=== PATIENT | male | born 2000 | race Caucasian/White ===

== ENCOUNTER 2021-07-18 15:10 | Inpatient (IN) ==
[2021-07-18 16:01] LABS: Appearance Urine Clear (Clear); Bilirubin Urine Negative (Negative); Blood Urine Negative (Negative); Color Urine Yellow; Glucose Urine UA Negative (Negative); Ketones Urine 1+ (Negative); Leukocyte Esterase Urine Negative (Negative); Nitrite Urine Negative (Negative); Protein Urine Negative (Negative); Specific Gravity Urine 1.012 (1.000-1.030); Urobilinogen Urine Negative (Negative)
[2021-07-18 16:21] LABS: Basophils # (auto) 0.03 K/uL (0-0.2); Basophils % (auto) 0.3 %; Eosinophils # (auto) 0.05 K/uL (0-0.5); Eosinophils % (auto) 0.5 %; Hematocrit (blood only) 48.4 % (42-52); Hemoglobin 16.6 g/dL (14.0-18.0); Immature Granulocytes # (auto) 0.03 K/uL (0.00-0.02); Immature Granulocytes % (auto) 0.3 %; Lymphocytes # (auto) 1.93 K/uL (1.2-3.4); Lymphocytes % (auto) 20.4 %; Mean Corpuscular Hemoglobin 27.7 pg (25-34); Mean Corpuscular Hgb Conc 34.3 g/dL (32-36); Mean Corpuscular Volume 80.8 fL (80-100); Mean Platelet Volume 9.9 fL (7.4-10.4); Monocytes # (auto) 0.67 K/uL (0.11-0.59); Monocytes % (auto) 7.1 %; Neutrophils # (auto) 6.74 K/uL (1.4-6.5); Neutrophils % (auto) 71.4 %; Platelet Count 206 K/uL (130-400); RDW Coefficient of Variation 13.6 % (11.5-14.5); RDW Standard Deviation 40.3 fL (36.4-46.3); Red Blood Count 5.99 M/uL (4.7-6.1); White Blood Count 9.45 K/uL (4.8-10.8)
[2021-07-18 16:31] LABS: Amphetamines+Metham, Urine Neg (Neg); Barbiturates, Urine Neg (Neg); Benzodiazepine, Urine Neg (Neg); Cocaine, Urine Neg (Neg); MDMA (Ecstacy), Urine Neg (Neg); Methadone, Urine Neg (Neg); Opiate, Urine Neg (Neg); Phencyclidine, Urine Neg (Neg)
[2021-07-18 16:41] LABS: Albumin Level 4.5 gm/dl (3.4-5.0); BUN Creatinine Ratio 10.5 (10-20); Calcium 9.6 mg/dl (8.5-10.1); Creatinine Clr Calc Pharmacy 99.6 ml/min; Est GFR (African American) 146.8 ml/min; Est GFR (Non-African American) 126.7 ml/min; Potassium 3.9 mmol/L (3.5-5.1)
[2021-07-18 16:50] LABS: Acetaminophen < 2 ug/ml (10-30); Salicylate < 1.7 mg/dl (2.8-20)
[2021-07-18 16:52] LABS: Albumin Globulin Ratio 1.3 (0.9-2); Bilirubin,Total 1.1 mg/dl (0.2-1); Globulin 3.4 gm/dl (2.5-4.0); Thyroid Stimulating Hormone 1.25 uIu/ml (0.300-4.500); Total Protein 7.9 gm/dl (6.4-8.2)
--- NOTE | 2021-07-19 00:35 | Emergency Department Note ---
Impression & Plan Suicidal ideation ED Provider Note CHIEF COMPLAINT: Suicidal ideation HISTORY OF PRESENT ILLNESS: This 21-year-old male patient presents to the emergency department with complaints of suicidal ideation. The patient states he first developed suicidal thoughts in December of this year when his long-term girlfriend broke up with him. Patient apparently had a very difficult summer but was able to distract himself. He states he would periodically have thoughts of driving his car off the road or overdosing on medications in an effort to kill himself. He states they were "hypothetical" and never came to fruition. He denies ever having a suicide attempt. Patient states he did speak with a counselor once who gave him some coping strategies after this break-up. He came back to school this fall and began dating somebody else. He states he felt very excited about this relationship but had a fight with this girl last night. He states he is very clingy in his current relationship and is always fearful that she will leave him. Patient's girlfriend stated that they needed to break up until he could deal with some of his issues. Apparently patient did not handle this well and states he "lost it." He began having active suicidal thoughts but did not have any attempts. According to the patient he told his mother that if he could not be "happy the way he was, it is not worth it." His mother is the one that directed him to the emergency department. Pt admits to ETOH occasional ly but denies substance use otherwise REVIEW OF SYSTEMS: A review of systems was performed with positives and pertinent negatives listed in the history of present illness. 10 systems were reviewed and are otherwise negative. ALLERGIES: see below MEDICATIONS: see below PMH: see below SOCIAL HISTORY: see below DDx: Mood disorder, infection, hypoglycemia, electrolyte abnormalities, cardiac sources, intracerebral event, toxicologic, trauma, neurologic, as well as other pathologies. PHYSICAL EXAM: Vital signs reviewed. General: Well-appearing 21 yo male, in no significant distress. HEENT: No scleral icterus, PERRLA, neck supple. Atraumatic. Cardiovascular: Regular rate and rhythm, no extra sounds. Pulmonary: Clear to auscultation bilaterally, normal work of breathing. Abdomen: Soft, nontender, nondistended, positive bowel sounds. Musculoskeletal: Atraumatic, no peripheral edema. Neurologic: Patient awake alert and oriented x 3, speech is clear Psych: Positive SI with plan, negative HI Skin: Warm, dry, no rash EMERGENCY DEPARTMENT COURSE/MDM: This patient was evaluated and appeared to be in no significant distress. Patient was medically cleared and referred to the psychiatric special education case manager for mental health assessment. It was felt that the patient warrants inpatient mental health care. Pt was signed out at the change of shift to Dr. Luis pending final disposition. DISPOSITION: Bed search for mental health admission Past Med/Surg History Medical History (Updated 07/22/21 @ 20:18 by Sera Ricci MD) Suicidal ideation Social History Smoking Status: Never smoker Preferred Language: Malawian Communication Ability: Effective Sheriff Officer Required: No Beliefs That Will Affect Care: None Feels Safe at Home: Yes Assistive Devices: Glasses Allergies Allergies Allergy/AdvReac Type Severity Reaction Status Date / Time No Known Allergies Allergy Unverified 07/19/21 14:08 Home Meds Home Medications Medication Instructions Recorded Confirmed Allergy 07/18/21 Results & Data (ED) Vital Signs Vital Signs - 24 hr 07/18/21 15:23 07/18/21 19:20 Temperature 37.2 C 37.2 C Temperature Source Temporal Artery Scan Oral Pulse Rate 95 H Pulse Rate [Right Finger] 83 Respiratory Rate 17 20 Respiratory Effort / Characteristics Non-Labored Respiratory Depth Normal Blood Pressure 147/86 H Blood Pressure [Right Arm] 139/73 Blood Pressure Mean 106 Blood Pressure Mean [Right Arm] 95 Blood Pressure Position Sitting Blood Pressure Position [Right Arm] Lying Pulse Oximetry 99 99 Oxygen Delivery Method Room Air Sepsis Recent Fever Within 48 Hours No Sepsis New/Unexplained Change in Mental Status N/A Sepsis Action Taken by Nursing No Action Required Laboratory Data Attestation: I reviewed the patient's lab results. Result diagrams: 07/18/21 16:11 07/18/21 16:11 Lab Results 07/18/21 07/18/21 07/18/21 Range/Units 15:45 15:45 16:11 WBC 9.45 (4.8-10.8) K/uL RBC 5.99 (4.7-6.1) M/uL Hgb 16.6 (14.0-18.0) g/dL Hct 48.4 (42-52) % MCV 80.8 (80-100) fL MCH 27.7 (25-34) pg MCHC 34.3 (32-36) g/dL RDW Std Deviation 40.3 (36.4-46.3) fL RDW Coeff of Jonathan 13.6 (11.5-14.5) % Plt Count 206 (130-400) K/uL MPV 9.9 (7.4-10.4) fL Immature Gran % (Auto) 0.3 % Neut % (Auto) 71.4 % Lymph % (Auto) 20.4 % Pike % (Auto) 7.1 % Eos % (Auto) 0.5 % Baso % (Auto) 0.3 % Neut # (Auto) 6.74 H (1.4-6.5) K/uL Lymph # (Auto) 1.93 (1.2-3.4) K/uL Pike # (Auto) 0.67 H (0.11-0.59) K/uL Eos # (Auto) 0.05 (0-0.5) K/uL Baso # (Auto) 0.03 (0-0.2) K/uL Immature Gran # (Auto) 0.03 H (0.00-0.02) K/uL Sodium (136-145) mmol/L Potassium (3.5-5.1) mmol/L Chloride (98-107) mmol/L Carbon Dioxide (21-32) mmol/L Anion Gap (3-11) BUN (7-18) mg/dl Creatinine (0.6-1.4) mg/dl Est Cr Clr Drug Dosing ml/min Est GFR ( Amer) ml/min Est GFR (Non-Af Amer) ml/min BUN/Creatinine Ratio (10-20) Glucose (70-99) mg/dl Calcium (8.5-10.1) mg/dl Total Bilirubin (0.2-1) mg/dl AST (15-37) U/L ALT (12-78) U/L Alkaline Phosphatase (45-117) U/L Total Protein (6.4-8.2) gm/dl Albumin (3.4-5.0) gm/dl Globulin (2.5-4.0) gm/dl Albumin/Globulin Ratio (0.9-2) TSH (0.300-4.500) uIu/ml Urine Color Yellow Urine Appearance Clear (Clear) Urine pH 8.0 H (4.5-7.5) Ur Specific [place] 1.012 (1.000-1.030) Urine Protein Negative (Negative) Urine Glucose (UA) Negative (Negative) Urine Ketones 1+ H (Negative) Urine Blood Negative (Negative) Urine Nitrite Negative (Negative) Urine Bilirubin Negative (Negative) Urine Urobilinogen Negative (Negative) Ur Leukocyte Esterase Negative (Negative) Salicylates (2.8-20) mg/dl Urine Opiates Screen Neg (Neg) Ur Methadone, Qual Neg (Neg) Acetaminophen (10-30) ug/ml Urine Barbiturates Neg (Neg) Ur Phencyclidine (PCP) Neg (Neg) U Amphetamin/Meth Scrn Neg (Neg) MDMA (Ecstasy) Screen Neg (Neg) U Benzodiazepines Scrn Neg (Neg) Ur Cocaine Metabolite Neg (Neg) U Marijuana (THC) Screen Neg (Neg) Ethyl Alcohol mg/dL (0-3) mg/dl COVID-19 Eval Order SARS-CoV-2 (PCR) (Negative) 07/18/21 07/18/21 07/18/21 Range/Units 16:11 16:11 16:11 WBC (4.8-10.8) K/uL RBC (4.7-6.1) M/uL Hgb (14.0-18.0) g/dL Hct (42-52) % MCV (80-100) fL MCH (25-34) pg MCHC (32-36) g/dL RDW Std Deviation (36.4-46.3) fL RDW Coeff of Jonathan (11.5-14.5) % Plt Count (130-400) K/uL MPV (7.4-10.4) fL Immature Gran % (Auto) % Neut % (Auto) % Lymph % (Auto) % Pike % (Auto) % Eos % (Auto) % Baso % (Auto) % Neut # (Auto) (1.4-6.5) K/uL Lymph # (Auto) (1.2-3.4) K/uL Pike # (Auto) (0.11-0.59) K/uL Eos # (Auto) (0-0.5) K/uL Baso # (Auto) (0-0.2) K/uL Immature Gran # (Auto) (0.00-0.02) K/uL Sodium 139 (136-145) mmol/L Potassium 3.9 (3.5-5.1) mmol/L Chloride 105 (98-107) mmol/L Carbon Dioxide 28 (21-32) mmol/L Anion Gap 6.0 (3-11) BUN 9 (7-18) mg/dl Creatinine 0.83 (0.6-1.4) mg/dl Est Cr Clr Drug Dosing 99.6 ml/min Est GFR ( Amer) 146.8 ml/min Est GFR (Non-Af Amer) 126.7 ml/min BUN/Creatinine Ratio 10.5 (10-20) Glucose 100 H (70-99) mg/dl Calcium 9.6 (8.5-10.1) mg/dl Total Bilirubin 1.1 H (0.2-1) mg/dl AST 15 (15-37) U/L ALT 25 (12-78) U/L Alkaline Phosphatase 102 (45-117) U/L Total Protein 7.9 (6.4-8.2) gm/dl Albumin 4.5 (3.4-5.0) gm/dl Globulin 3.4 (2.5-4.0) gm/dl Albumin/Globulin Ratio 1.3 (0.9-2) TSH 1.250 (0.300-4.500) uIu/ml Urine Color Urine Appearance (Clear) Urine pH (4.5-7.5) Ur Specific [place] (1.000-1.030) Urine Protein (Negative) Urine Glucose (UA) (Negative) Urine Ketones (Negative) Urine Blood (Negative) Urine Nitrite (Negative) Urine Bilirubin (Negative) Urine Urobilinogen (Negative) Ur Leukocyte Esterase (Negative) Salicylates < 1.7 L (2.8-20) mg/dl Urine Opiates Screen (Neg) Ur Methadone, Qual (Neg) Acetaminophen < 2 L (10-30) ug/ml Urine Barbiturates (Neg) Ur Phencyclidine (PCP) (Neg) U Amphetamin/Meth Scrn (Neg) MDMA (Ecstasy) Screen (Neg) U Benzodiazepines Scrn (Neg) Ur Cocaine Metabolite (Neg) U Marijuana (THC) Screen (Neg) Ethyl Alcohol mg/dL < 3.0 (0-3) mg/dl COVID-19 Eval Order SARS-CoV-2 (PCR) (Negative) 07/18/21 07/18/21 Range/Units 16:37 16:37 WBC (4.8-10.8) K/uL RBC (4.7-6.1) M/uL Hgb (14.0-18.0) g/dL Hct (42-52) % MCV (80-100) fL MCH (25-34) pg MCHC (32-36) g/dL RDW Std Deviation (36.4-46.3) fL RDW Coeff of Jonathan (11.5-14.5) % Plt Count (130-400) K/uL MPV (7.4-10.4) fL Immature Gran % (Auto) % Neut % (Auto) % Lymph % (Auto) % Pike % (Auto) % Eos % (Auto) % Baso % (Auto) % Neut # (Auto) (1.4-6.5) K/uL Lymph # (Auto) (1.2-3.4) K/uL Pike # (Auto) (0.11-0.59) K/uL Eos # (Auto) (0-0.5) K/uL Baso # (Auto) (0-0.2) K/uL Immature Gran # (Auto) (0.00-0.02) K/uL Sodium (136-145) mmol/L Potassium (3.5-5.1) mmol/L Chloride (98-107) mmol/L Carbon Dioxide (21-32) mmol/L Anion Gap (3-11) BUN (7-18) mg/dl Creatinine (0.6-1.4) mg/dl Est Cr Clr Drug Dosing ml/min Est GFR ( Amer) ml/min Est GFR (Non-Af Amer) ml/min BUN/Creatinine Ratio (10-20) Glucose (70-99) mg/dl Calcium (8.5-10.1) mg/dl Total Bilirubin (0.2-1) mg/dl AST (15-37) U/L ALT (12-78) U/L Alkaline Phosphatase (45-117) U/L Total Protein (6.4-8.2) gm/dl Albumin (3.4-5.0) gm/dl Globulin (2.5-4.0) gm/dl Albumin/Globulin Ratio (0.9-2) TSH (0.300-4.500) uIu/ml Urine Color Urine Appearance (Clear) Urine pH (4.5-7.5) Ur Specific [place] (1.000-1.030) Urine Protein (Negative) Urine Glucose (UA) (Negative) Urine Ketones (Negative) Urine Blood (Negative) Urine Nitrite (Negative) Urine Bilirubin (Negative) Urine Urobilinogen (Negative) Ur Leukocyte Esterase (Negative) Salicylates (2.8-20) mg/dl Urine Opiates Screen (Neg) Ur Methadone, Qual (Neg) Acetaminophen (10-30) ug/ml Urine Barbiturates (Neg) Ur Phencyclidine (PCP) (Neg) U Amphetamin/Meth Scrn (Neg) MDMA (Ecstasy) Screen (Neg) U Benzodiazepines Scrn (Neg) Ur Cocaine Metabolite (Neg) U Marijuana (THC) Screen (Neg) Ethyl Alcohol mg/dL (0-3) mg/dl COVID-19 Eval Order Covid19 at [facility] SARS-CoV-2 (PCR) NEGATIVE (Negative) Administered Medications Discontinued Medications Escitalopram Oxalate (Escitalopram Oxalate 10 Mg Tab) 5 mg PO QAM SARA Stop: 08/20/21 10:14 Last Admin: 07/22/21 08:48 Dose: 5 mg Documented by: [id number] Admin: 07/21/21 12:21 Dose: 5 mg Documented by: [id number] Escitalopram Oxalate (Escitalopram Oxalate 10 Mg Tab) 5 mg PO QAM ONE Stop: 07/22/21 09:01 Last Admin: 07/22/21 09:37 Dose: 5 mg Documented by: [id number] Influenza Virus Vaccine Quadrival (Fluarix Quadrivalent 0.5 Ml Syr) 0.5 ml IM .ONCE ONE Stop: 07/20/21 13:41 Last Admin: 07/20/21 14:10 Dose: 0.5 ml Documented by: [id number] Blood Pressure Blood Pressure Findings: Normal blood pressure Blood Pressure Disposition: Referred to patients primary care provider Discharge Plan Visit Data Chief Complaint: Mental Health Evaluation Stated Complaint: MENTAL HEALTH ED Provider: Sandra Luis Discharge Problem: Suicidal ideation Patient Disposition: Admitted As Inpatient Discharge Instructions Interventions: ED Discharge Assessment Last Done: 07/19/21 14:17
--- NOTE | 2021-07-19 06:03 | Emergency Department Note ---
ED Visit Note This case was signed out to me at change of shift awaiting bed placement. The patient is a voluntary admission. He has been sleeping throughout the night with his father present in the room. The bed search has been suspended as there is no bed availability. Will resume in the morning. The case will be signed out to Dr. Johnson. .
[2021-07-19] MEDS ORDERED: BISMUTH SUBSALICYLATE LIQD 236 ML PO PRN (14:09)
[2021-07-19] MEDS ORDERED: MAGNESIUM HYDROXIDE SUSP 30 ML UDC PO PRN (14:09)
[2021-07-19] MEDS ORDERED: ACETAMINOPHEN 325 MG TAB PO PRN (14:09)
[2021-07-19] MEDS ORDERED: hydrOXYzine HCl 25 MG TAB PO PRN ×2 (14:09)
[2021-07-19] MEDS ORDERED: ALUMINUM/MAGNESIUM SUSP 30 ML UDC PO PRN (14:09)
[2021-07-19] MEDS ORDERED: SODIUM CHLORIDE 0.65% NA SOLN 45 ML (OCEAN) PRN (14:09)
--- NOTE | 2021-07-19 15:03 | Emergency Department Note ---
ED Visit Note Patient was signed out to me awaiting placement. He was accepted at [facility]. .
--- NOTE | 2021-07-20 09:46 | History & Physical ---
Date of Service July 20, 2021 Impression / Recommendations Impression The patient is a 21 year old with a history of depression and anxiety who was admitted for SI with plan in the context of a breakup. The patient is deemed unstable and requires psychiatric hospitalization for diagnostic clarification, safety and stabilization, medication management and development of further coping skills. Diagnostically consistent with DORITA and MDD, recurrent as well as adjustment reaction with depressed mood. Discussed at length treatment options including therapy and option for medications including risks/benefits/alteratives of SSRIs. He will consider the option for medication but is most interested in therapy and developing coping skills to help with safety and stabilization. (1) Suicidal ideation: (2) DORITA (generalized anxiety disorder): (3) MDD (major depressive disorder), recurrent episode: 07/20/21: Adjusting well to the unit, will focus on CBT/DBT interventions, safety planning and family meeting. He will consider option for SSRI for anxiety and depression. 07/19/21: The patient was admitted to the [facility] ([facility] mental health unit) on q15 min checks (behavioral with suicide precautions) for safety. The patient will participate in group, recreational, and milieu therapies and will be offered additional individual and family sessions as clinically appropriate. Inventory Assets Strengths: agreeable to engage in therapy, engaged with school and extracurriculars Needs: outpatient therapy, safety planning Risk Factors Assessment Male: Yes : Yes Do You Have Access To A Gun?: No Mental Health Diagnoses: Yes Substance Use Disorders: No Previous Attempt: No Family History of Suicide: No Previous Psychiatric Hospitalization: No Hopelessness: No Smoker: No Protective Factors Assessment Employed: No Stable Relationships: Yes Supportive Family: Yes Psychiatric History Identifying Data URIEL FAUST is a 21-year-old M who currently lives in an off-campus apartment, is a [employer] student and was admitted on 07/19/21 14:24 on a 201 voluntary commitment for suicidal ideation with plans of jumping out of a car. Chief Complaint "I kept a lot to myself". History of Present Illness Willy presents for admission for emergence of SI with plans, including thoughts of jumping out of a car, following a breakup. He does not endorse current depressi ve symptoms but has been feeling very anxious as this breakup brought up memories of a breakup in December, following a 3.5 year relationship, which then prompted a major depressive episode for many months. Following the breakup on Wednesday his thoughts started to spiral and he began thinking that he would become severely depressed again and that "if I'm not going to be happy, I don't want to deal with it" and this brought on strong SI. He reached out to his mother and roommates for support and came to the ED for help. Currently he feels "relieved" to be able to finally talk about the impact of his breakup in December and subsequent depressive symptoms over the summer. He felt that he was never able to adequately deal with the impact of this and instead struggled through the summer and then felt better in the fall when he transitioned back to [place] and started a new relationship. However, during the new relationship his partner felt that he still had lingering "issues" to work on such as fears of rejection or another breakup and when this came to fruition on Wednesday he felt unable to cope without increased support for safety and stabilization. He is interested and willing to do therapy as he recognizes the importance of learning new ways to cope with fears about rejection and to process the impact of his recent breakups. Psychiatric ROS notable for: no hx jennifer, no hx psychosis, long hx anxiety, no hx panic attacks, no hx PTSD, no hx eating disorder, no hx OCD, no significant substance use history. Past Psychiatric History Previous Psych History: none Current Psychiatric Diagnosis: MDD Outpatient Services: none Previous Psych Admissions: none Do You Have Access To A Gun?: No History of Previous Suicide Attempt: No Describe Attempts in the Past: Thoughts only Past Medication Trials: none Past Head Trauma/Neuro History History of Concussion/Seizure: No Allergies Allergy/AdvReac Type Severity Reaction Status Date / Time No Known Allergies Allergy Unverified 07/19/21 14:08 Home Medications Medication Instructions Recorded Confirmed Type Allergy 07/18/21 History Family History Family History of: Depression (PGM and PGF) Alcohol History Hx of Alcohol Use Over the Past 12 Months: Yes AUDIT Total Score: 5 Smoking Use Have You Smoked or Used Tobacco Products in the Last 30 Days: No Smoking Status: Never smoker Substance History Hx of Prescription Med Misuse Over the Past 12 Months: No Hx of Over the Counter Med Misuse Over the Past 12 Months: No Hx of Inhalent Misuse Over the Past 12 Months: No Hx of Organic Substance Use Over the Past 12 Months: Yes (tried x 2) Hx of Illegal Substances/Street Drug Use Over Past 12 Months: No Problems as a Result of Past Substance Use: None Identified Personal History Living Arrangements: Apartment Highest Grade Completed: High School Graduate Employment Status: Student Beliefs That Will Affect Care: None Hx Legal Problems: No Hx Traumatic Life Events: No Patient History Social History Smoking Status: Never smoker Preferred Language: Romanian Communication Ability: Effective Cytogenetics Technologist Required: No Beliefs That Will Affect Care: None Feels Safe at Home: Yes Assistive Devices: Glasses Review of Systems Review of Systems: All systems reviewed & are unremarkable except as noted in HPI & below Physical Exam 2 Psychiatric: Orientation: alert and oriented x 3 Apperance: appropriately dressed and appropriately groomed Eye Contact: good eye contact Motor Behavior: steady gait and station and no abnormal motor movements Speech: normal rate/rhythm/volume of speech Affect: + depressed affect Mood: + anxious mood Thought Process: goal directed thought process Thought Content: reality based without delusions Suicidal Thoughts: denies suicidal intent SI with plan on Wednesday, reducing now that he is in the hospital and feels safe here Homicidal Thoughts: denies homicidal thoughts Hallucinations: no auditory hallucinations and no visual hallucinations Cognition: recent memory grossly intact, remote memory grossly intact, attention grossly intact and language grossly intact Estimated Intelligence: consistent with education level Insight: + fair insight Judgement: + fair judgement Vital Signs (Past 24 Hours): Last Vital Signs Temp 36.5 C 07/20/21 06:00 Pulse 101 H 07/20/21 06:43 Resp 16 07/20/21 06:00 BP 103/67 07/20/21 06:43 Pulse Ox 97 07/19/21 11:03 Exam Statement: A physical exam was performed in the ED by Dr. Ricci for the purposes of medical clearance. I accept that physical as correct and adequate for the purposes of the inpatient physical exam. Results & Data (U) Current Inpatient Medications Current Inpatient Medications: Current Inpatient Medications Acetaminophen (Acetaminophen 325 Mg Tab) 650 mg PO Q4H PRN PRN Reason: Headache or Minor Fever Stop: 08/18/21 14:08 Al Hydrox/Mg Hydrox/Simethicone (Aluminum/Magnesium Susp 30 Ml Udc) 30 ml PO Q4H PRN PRN Reason: GI Upset Stop: 08/18/21 14:08 Bismuth Subsalicylate (Bismuth Subsalicylate Liqd 236 Ml) 15 ml PO PRN PRN PRN Reason: Loose Stool Stop: 08/18/21 14:08 Hydroxyzine HCl (Hydroxyzine Hcl 25 Mg Tab) 50 mg PO HSZ PRN PRN Reason: Insomnia Stop: 08/18/21 14:08 Hydroxyzine HCl (Hydroxyzine Hcl 25 Mg Tab) 25 mg PO Q4H PRN PRN Reason: Anxiety Stop: 08/18/21 14:08 Magnesium Hydroxide (Magnesium Hydroxide Susp 30 Ml Udc) 30 ml PO DAILY PRN PRN Reason: Constipation Stop: 08/18/21 14:08 Sodium Chloride (Sodium Chloride 0.65% Na Soln 45 Ml ([place])) 1 - 2 sprays NA PRN PRN PRN Reason: Nasal Dryness/Congestion Stop: 08/18/21 14:08
[2021-07-20] MEDS ORDERED: FLUARIX QUADRIVALENT 0.5 ML SYR IM ONE (13:40)
[2021-07-21] MEDS: ESCITALOPRAM OXALATE 10 MG TAB PO SCH (12:21)
--- NOTE | 2021-07-21 12:35 | Psychiatric Progress Note ---
Date of Service July 21, 2021 Impression / Recommendations Impression The patient is a 21 year old with a history of depression and anxiety who was admitted for SI with plan in the context of a breakup. The patient is deemed unstable and requires psychiatric hospitalization for diagnostic clarification, safety and stabilization, medication management and development of further coping skills. Diagnostically consistent with DORITA and MDD, recurrent as well as adjustment reaction with depressed mood. Discussed at length treatment options including therapy and option for medications including risks/benefits/alteratives of SSRIs. Counseled on black box warning of potential for emergence of or increased SI and need to let staff know should this occur or should they feel unsafe. Also discussed importance of seeking emergency care following discharge if this side effect occurs in the future. 07/21/21: Again discussed medication options including risks/benefits/alternatives including black box warning for SI. He would like to start escitalopram for anxiety and depression. (1) Suicidal ideation: (2) DORITA (generalized anxiety disorder): (3) MDD (major depressive disorder), recurrent episode: 07/21/21: Starting escitalopram 5 mg qd for anxiety and depression. Plan to titrate to 10mg tomorrow if no side effects today. Individual therapeutic interventions for CBT. Family meeting today. 07/20/21: Adjusting well to the unit, will focus on CBT/DBT interventions, safety planning and family meeting. He will consider option for SSRI for anxiety and depression. 07/19/21: The patient was admitted to the [facility] ([facility] mental [facility] unit) on q15 min checks (behavioral with suicide precautions) for safety. The patient will participate in group, recreational, and milieu therapies and will be offered additional individual and family sessions as clinically appropriate. Inventory Assets Strengths: agreeable to engage in therapy, engaged with school and extracurriculars Needs: outpatient therapy, safety planning Risk Factors Assessment Male: Yes : Yes Do You Have Access To A Gun?: No Mental Health Diagnoses: Yes Substance Use Disorders: No Previous Attempt: No Family History of Suicide: No Previous Psychiatric Hospitalization: No Hopelessness: No Smoker: No Protective Factors Assessment Employed: No Stable Relationships: Yes Supportive Family: Yes Interval History Chief Complaint "[]". Review of Systems Sleep Information Total Hours of Sleep: 8.25 Sleep Comments: pt appeared to sleep 1.25 hrs during evening shift. pton q-15 minute checks Meal Information Percent Meal Consumed - Breakfast: 100 Percent Meal Consumed - Lunch: 100 Percent Meal Consumed - Dinner: 100 Subjective Subjective Patient was seen & assessed and interval progress reviewed with [treatment team] [nursing and social work] Physical Exam Psychiatric Orientation: alert and oriented x 3 Apperance: appropriately dressed and appropriately groomed Eye Contact: good eye contact Motor Behavior: steady gait and station and no abnormal motor movements Speech: normal rate/rhythm/volume of speech Affect: + depressed affect Mood: + anxious mood Thought Process: goal directed thought process Thought Content: reality based without delusions Suicidal Thoughts: denies suicidal intent Homicidal Thoughts: denies homicidal thoughts Hallucinations: no auditory hallucinations and no visual hallucinations Cognition: recent memory grossly intact, remote memory grossly intact, attention grossly intact and language grossly intact Estimated Intelligence: consistent with education level Insight: + fair insight Judgement: + fair judgement Vital Signs (Past 24 Hours) Last Vital Signs Temp 36.6 C 07/21/21 06:33 Pulse 76 07/21/21 06:34 Resp 16 07/21/21 06:33 BP 107/69 07/21/21 06:34 Pulse Ox 97 07/19/21 11:03 Results & Data ([facility]) Current Inpatient Medications Current Inpatient Medications: Current Inpatient Medications Acetaminophen (Acetaminophen 325 Mg Tab) 650 mg PO Q4H PRN PRN Reason: Headache or Minor Fever Stop: 08/18/21 14:08 Al Hydrox/Mg Hydrox/Simethicone (Aluminum/Magnesium Susp 30 Ml Udc) 30 ml PO Q4H PRN PRN Reason: GI Upset Stop: 08/18/21 14:08 Bismuth Subsalicylate (Bismuth Subsalicylate Liqd 236 Ml) 15 ml PO PRN PRN PRN Reason: Loose Stool Stop: 08/18/21 14:08 Escitalopram Oxalate (Escitalopram Oxalate 10 Mg Tab) 5 mg PO QAM SARA Stop: 08/20/21 10:14 Last Admin: 07/21/21 12:21 Dose: 5 mg Documented by: Hydroxyzine HCl (Hydroxyzine Hcl 25 Mg Tab) 50 mg PO HSZ PRN PRN Reason: Insomnia Stop: 08/18/21 14:08 Hydroxyzine HCl (Hydroxyzine Hcl 25 Mg Tab) 25 mg PO Q4H PRN PRN Reason: Anxiety Stop: 08/18/21 14:08 Magnesium Hydroxide (Magnesium Hydroxide Susp 30 Ml Udc) 30 ml PO DAILY PRN PRN Reason: Constipation Stop: 08/18/21 14:08 Sodium Chloride (Sodium Chloride 0.65% Na Soln 45 Ml ([place])) 1 - 2 sprays NA PRN PRN PRN Reason: Nasal Dryness/Congestion Stop: 08/18/21 14:08 Mental Health & Subst Abuse Tx Therapist Name of Therapist: Bennie Zamorano- Pati Gage Therapist's Therapy Appointment Comment: [address] [place] [address] [address] [place] Post Discharge Appointments Primary Care Physician Name Of Family Doctor: Francine [facility] Date of Appointment with PCP: 07/28/21 Time of Appointment with PCP: 10:40am Provider Appointment Comment: Located at [facility] Contact Information Discharge Discharge Address: [facility], [place] [address]
[2021-07-22] MEDS: ESCITALOPRAM OXALATE 10 MG TAB PO SCH (08:48)
--- NOTE | 2021-07-22 08:49 | Psychiatric Progress Note ---
Date of Service July 22, 2021 Impression / Recommendations Impression The patient is a 21 year old with a history of depression and anxiety who was admitted for SI with plan in the context of a breakup. The patient is deemed unstable and requires psychiatric hospitalization for diagnostic clarification, safety and stabilization, medication management and development of further coping skills. Diagnostically consistent with DORITA and MDD, recurrent as well as adjustment reaction with depressed mood. Discussed at length treatment options including therapy and option for medications including risks/benefits/alteratives of SSRIs. Counseled on black box warning of potential for emergence of or increased SI and need to let staff know should this occur or should they feel unsafe. Also discussed importance of seeking emergency care following discharge if this side effect occurs in the future. 07/22/21: Tolerating increase of lexpro to 10mg qd, improvement in mood and no SI (1) Suicidal ideation: (2) DORITA (generalized anxiety disorder): (3) MDD (major depressive disorder), recurrent episode: 07/22/21: Increased escitalopram to 10 mg qd for anxiety and depression. Engaged in CBT work and completed safety plan. Had productive family meeting, feels well supported. 07/21/21: Starting escitalopram 5 mg qd for anxiety and depression. Plan to titrate to 10mg tomorrow if no side effects today. Individual therapeutic interventions for CBT. Family meeting today. 07/20/21: Adjusting well to the unit, will focus on CBT/DBT interventions, safety planning and family meeting. He will consider option for SSRI for anxiety and depression. 07/19/21: The patient [facility] on q15 min checks (behavioral with suicide precautions) for safety. The patient will participate in group, recreational, and milieu therapies and will be offered additional individual and family sessions as clinically appropriate. Risk Factors Assessment Male: Yes : Yes Do You Have Access To A Gun?: No Mental Health Diagnoses: Yes Substance Use Disorders: No Previous Attempt: No Family History of Suicide: No Previous Psychiatric Hospitalization: No Hopelessness: No Smoker: No Protective Factors Assessment Employed: No Stable Relationships: Yes Supportive Family: Yes Interval History Identifying Information URIEL FAUST is a 21-year-old M who currently lives in an off-campus apartment, is a [employer] student and was admitted on 07/19/21 14:24 on a 201 voluntary commitment for suicidal ideation with plans of jumping out of a car. Chief Complaint "I'm feeling better". Review of Systems Sleep Information Total Hours of Sleep: 7 Sleep Comments: pt on q-15 minute checks Meal Information Percent Meal Consumed - Breakfast: 100 Percent Meal Consumed - Lunch: 100 Percent Meal Consumed - Dinner: 100 Subjective Subjective Patient was seen & assessed and interval progress reviewed with treatment team nursing and social work. Had family meeting yesterday. Completed his safety plan last night. Tolerating the 5mg of lexapro so far and agreed to adding additional 5 mg this morning which he tolerated well without any side effects. He feels his mood has stabilized and he denies any SI. Is motivated to engage with outpatient therapy. Participating in groups and individual CBT work. Feel well supported by his parents and friends. Physical Exam Psychiatric Orientation: alert and oriented x 3 Apperance: appropriately dressed and appropriately groomed Eye Contact: good eye contact Motor Behavior: steady gait and station and no abnormal motor movements Speech: normal rate/rhythm/volume of speech Affect: euthymic affect Mood: no depressed mood and no anxious mood Thought Process: goal directed thought process Thought Content: reality based without delusions Suicidal Thoughts: denies suicidal thoughts Homicidal Thoughts: denies homicidal thoughts Hallucinations: no auditory hallucinations and no visual hallucinations Cognition: recent memory grossly intact, remote memory grossly intact, attention grossly intact and language grossly intact Estimated Intelligence: consistent with education level Insight: + fair insight Judgement: + fair judgement Vital Signs (Past 24 Hours) Last Vital Signs Temp 36.6 C 07/22/21 07:03 Pulse 87 07/22/21 07:04 Resp 16 07/22/21 07:03 BP 101/60 07/22/21 07:04 Pulse Ox 97 07/19/21 11:03 Results & Data ([facility]) Current Inpatient Medications Current Inpatient Medications: Current Inpatient Medications Acetaminophen (Acetaminophen 325 Mg Tab) 650 mg PO Q4H PRN PRN Reason: Headache or Minor Fever Stop: 08/18/21 14:08 Al Hydrox/Mg Hydrox/Simethicone (Aluminum/Magnesium Susp 30 Ml Udc) 30 ml PO Q4H PRN PRN Reason: GI Upset Stop: 08/18/21 14:08 Bismuth Subsalicylate (Bismuth Subsalicylate Liqd 236 Ml) 15 ml PO PRN PRN PRN Reason: Loose Stool Stop: 08/18/21 14:08 Escitalopram Oxalate (Escitalopram Oxalate 10 Mg Tab) 5 mg PO QAM SARA Stop: 08/20/21 10:14 Last Admin: 07/21/21 12:21 Dose: 5 mg Documented by: Hydroxyzine HCl (Hydroxyzine Hcl 25 Mg Tab) 50 mg PO HSZ PRN PRN Reason: Insomnia Stop: 08/18/21 14:08 Hydroxyzine HCl (Hydroxyzine Hcl 25 Mg Tab) 25 mg PO Q4H PRN PRN Reason: Anxiety Stop: 08/18/21 14:08 Magnesium Hydroxide (Magnesium Hydroxide Susp 30 Ml Udc) 30 ml PO DAILY PRN PRN Reason: Constipation Stop: 08/18/21 14:08 Sodium Chloride (Sodium Chloride 0.65% Na Soln 45 Ml ([place])) 1 - 2 sprays NA PRN PRN PRN Reason: Nasal Dryness/Congestion Stop: 08/18/21 14:08 Mental Health & Subst Abuse Tx Therapist Name of Therapist: Bennie Gage Therapist's Date of Therapist Appointment: 07/28/21 Time of Therapist Appointment: 9 a.m Therapy Appointment Comment: [address] [place] [address] [address] Post Discharge Appointments Primary Care Physician Name Of Family Doctor: N[facility] Date of Appointment with PCP: 07/28/21 Time of Appointment with PCP: 10:40am Provider Appointment Comment: Located at [facility] Contact Information Discharge Discharge Address: [facility] [place] [address]
[2021-07-22] MEDS ORDERED: ESCITALOPRAM OXALATE 10 MG TAB PO ONE (09:00)
[2021-07-23] MEDS ORDERED: ESCITALOPRAM OXALATE 10 MG TAB PO SCH (09:00)
--- NOTE | 2021-07-23 09:32 | Discharge Summary ---
Date of Service July 23, 2021 History of Present Illness Willy presents for admission for emergence of SI with plans, including thoughts of jumping out of a car, following a breakup. He does not endorse current depressive symptoms but has been feeling very anxious as this breakup brought up memories of a breakup in December, following a 3.5 year relationship, which then prompted a major depressive episode for many months. Following the breakup on Wednesday his thoughts started to spiral and he began thinking that he would become severely depressed again and that "if I'm not going to be happy, I don't want to deal with it" and this brought on strong SI. He reached out to his mother and roommates for support and came to the ED for help. Currently he feels "relieved" to be able to finally talk about the impact of his breakup in December and subsequent depressive symptoms over the summer. He felt that he was never able to adequately deal with the impact of this and instead struggled through the summer and then felt better in the fall when he transitioned back to [facility] and started a new relationship. However, during the new relationship his partner felt that he still had lingering "issues" to work on such as fears of rejection or another breakup and when this came to fruition on Wednesday he felt unable to cope without increased support for safety and stabilization. He is interested and willing to do therapy as he recognizes the importance of learning new ways to cope with fears about rejection and to p rocess the impact of his recent breakups. Psychiatric ROS notable for: no hx jennifer, no hx psychosis, long hx anxiety, no hx panic attacks, no hx PTSD, no hx eating disorder, no hx OCD, no significant substance use history. Physical Exam Vital Signs (Past 24 Hours) Last Vital Signs Temp 36.5 C 07/23/21 07:05 Pulse 78 07/23/21 07:06 Resp 16 07/23/21 07:05 BP 102/64 07/23/21 07:06 Pulse Ox 97 07/19/21 11:03 See admission H&P and DOD summary. Principal Diagnosis Major Depressive Disorder, Generalized Anxiety Disorder Psychiatric Data See daily stay summary. In short, patient was engaged with the social/therapeutic milieu of the unit, safety was maintained and the patient was cooperative with care. Medication changes included starting lexapro with t itration to 10mg daily and they tolerated this well. Dose could be increased after 4 weeks to 15 mg and then further increased to 20mg daily if depression and anxiety symptoms worsen in the future. A family session was held and safety plan was completed prior to discharge. Patient has outpatient therapy which will begin on 07/28. Day of Discharge Assessment Today the patient voices readiness for discharge. They note improvement in mood and anxiety. They deny thoughts of harm to self or others. Thoughts remain organized and they are clinically improved from admission. He is future-oriented about weekend plans, seeing family and friends, classes and blue band activities. There is no evidence of psychosis. They improved in the hospital with support and medication adjustments. They agree to take medications as prescribed and keep follow-up appointments. At the time of the discharge they are deemed to be stable and appropriate for outpatient level of care. They are not deemed to be at imminent risk of harm to self or others. They are aware of emergency and crisis services. Knows to call 911 or go to nearest emergency care center if in a crisis which cannot be handled as an outpatient. Transition of Care Transition Of Care Record: was reviewed with the patient Advance Directives Advance Directives Information Provided: Yes Advance Directives: No Mental Health Advance Directive: No Advance Directives on File: No Living Will: No Power of Finisher Cold Rolling: No Advance Directives Reason:: Declines as Mental Health Visit. Risk Factors Assessment Male: Yes : Yes Do You Have Access To A Gun?: No Mental Health Diagnoses: Yes Substance Use Disorders: No Previous Attempt: No Family History of Suicide: No Previous Psychiatric Hospitalization: No Hopelessness: No Smoker: No Protective Factors Assessment Employed: No Stable Relationships: Yes Supportive Family: Yes Discharge Data Lab Results 07/18/21 07/18/21 07/18/21 15:45 15:45 16:11 WBC 9.45 RBC 5.99 Hgb 16.6 Hct 48.4 MCV 80.8 MCH 27.7 MCHC 34.3 RDW Std Deviation 40.3 RDW Coeff of Jonathan 13.6 Plt Count 206 MPV 9.9 Immature Gran % (Auto) 0.3 Neut % (Auto) 71.4 Lymph % (Auto) 20.4 [place] % (Auto) 7.1 Eos % (Auto) 0.5 Baso % (Auto) 0.3 Neut # (Auto) 6.74 H Lymph # (Auto) 1.93 [place] # (Auto) 0.67 H Eos # (Auto) 0.05 Baso # (Auto) 0.03 Immature Gran # (Auto) 0.03 H Sodium Potassium Chloride Carbon Dioxide Anion Gap BUN Creatinine Est Cr Clr Drug Dosing Est GFR ( Amer) Est GFR (Non-Af Amer) BUN/Creatinine Ratio Glucose Calcium Total Bilirubin AST ALT Alkaline Phosphatase Total Protein Albumin Globulin Albumin/Globulin Ratio TSH Urine Color Yellow Urine Appearance Clear Urine pH 8.0 H Ur Specific [place] 1.012 Urine Protein Negative Urine Glucose (UA) Negative Urine Ketones 1+ H Urine Blood Negative Urine Nitrite Negative Urine Bilirubin Negative Urine Urobilinogen Negative Ur Leukocyte Esterase Negative Salicylates Urine Opiates Screen Neg Ur Methadone, Qual Neg Acetaminophen Urine Barbiturates Neg Ur Phencyclidine (PCP) Neg U Amphetamin/Meth Scrn Neg MDMA (Ecstasy) Screen Neg U Benzodiazepines Scrn Neg Ur Cocaine Metabolite Neg U Marijuana (THC) Screen Neg Ethyl Alcohol mg/dL COVID-19 Eval Order SARS-CoV-2 (PCR) 07/18/21 07/18/21 07/18/21 16:11 16:11 16:11 WBC RBC Hgb Hct MCV MCH MCHC RDW Std Deviation RDW Coeff of Jonathan Plt Count MPV Immature Gran % (Auto) Neut % (Auto) Lymph % (Auto) [place] % (Auto) Eos % (Auto) Baso % (Auto) Neut # (Auto) Lymph # (Auto) [place] # (Auto) Eos # (Auto) Baso # (Auto) Immature Gran # (Auto) Sodium 139 Potassium 3.9 Chloride 105 Carbon Dioxide 28 Anion Gap 6.0 BUN 9 Creatinine 0.83 Est Cr Clr Drug Dosing 99.6 Est GFR ( Amer) 146.8 Est GFR (Non-Af Amer) 126.7 BUN/Creatinine Ratio 10.5 Glucose 100 H Calcium 9.6 Total Bilirubin 1.1 H AST 15 ALT 25 Alkaline Phosphatase 102 Total Protein 7.9 Albumin 4.5 Globulin 3.4 Albumin/Globulin Ratio 1.3 TSH 1.250 Urine Color Urine Appearance Urine pH Ur Specific [place] Urine Protein Urine Glucose (UA) Urine Ketones Urine Blood Urine Nitrite Urine Bilirubin Urine Urobilinogen Ur Leukocyte Esterase Salicylates < 1.7 L Urine Opiates Screen Ur Methadone, Qual Acetaminophen < 2 L Urine Barbiturates Ur Phencyclidine (PCP) U Amphetamin/Meth Scrn MDMA (Ecstasy) Screen U Benzodiazepines Scrn Ur Cocaine Metabolite U Marijuana (THC) Screen Ethyl Alcohol mg/dL < 3.0 COVID-19 Eval Order SARS-CoV-2 (PCR) 07/18/21 07/18/21 16:37 16:37 WBC RBC Hgb Hct MCV MCH MCHC RDW Std Deviation RDW Coeff of Jonathan Plt Count MPV Immature Gran % (Auto) Neut % (Auto) Lymph % (Auto) [place] % (Auto) Eos % (Auto) Baso % (Auto) Neut # (Auto) Lymph # (Auto) [place] # (Auto) Eos # (Auto) Baso # (Auto) Immature Gran # (Auto) Sodium Potassium Chloride Carbon Dioxide Anion Gap BUN Creatinine Est Cr Clr Drug Dosing Est GFR ( Amer) Est GFR (Non-Af Amer) BUN/Creatinine Ratio Glucose Calcium Total Bilirubin AST ALT Alkaline Phosphatase Total Protein Albumin Globulin Albumin/Globulin Ratio TSH Urine Color Urine Appearance Urine pH Ur Specific [place] Urine Protein Urine Glucose (UA) Urine Ketones Urine Blood Urine Nitrite Urine Bilirubin Urine Urobilinogen Ur Leukocyte Esterase Salicylates Urine Opiates Screen Ur Methadone, Qual Acetaminophen Urine Barbiturates Ur Phencyclidine (PCP) U Amphetamin/Meth Scrn MDMA (Ecstasy) Screen U Benzodiazepines Scrn Ur Cocaine Metabolite U Marijuana (THC) Screen Ethyl Alcohol mg/dL COVID-19 Eval Order Covid19 at [facility] SARS-CoV-2 (PCR) NEGATIVE Hospital Course (1) Suicidal ideation: (2) DORITA (generalized anxiety disorder): (3) MDD (major depressive disorder), recurrent episode: 07/22/21: Increased escitalopram to 10 mg qd for anxiety and depression. Engaged in CBT work and completed safety plan. Had productive family meeting, feels well supported. 07/21/21: Starting escitalopram 5 mg qd for anxiety and depression. Plan to titrate to 10mg tomorrow if no side effects today. Individual therapeutic interventions for CBT. Family meeting today. 07/20/21: Adjusting well to the unit, will focus on CBT/DBT interventions, safety planning and family meeting. He will consider option for SSRI for anxiety and depression. 07/19/21: [facility] on q15 min checks (behavioral with suicide precautions) for safety. The patient will participate in group, recreational, and milieu therapies and will be offered additional individual and family sessions as clinically appropriate. Mental Health & Subst Abuse Tx Therapist Name of Therapist: Bennie Gage Therapist's Date of Therapist Appointment: 07/28/21 Time of Therapist Appointment: 9 a.m [facility] App[facility]ment [facility] [address] [place] Post Discharge Appointments Primary Care Physician Name Of Family Doctor: [facility] Date of Appointment with PCP: 07/28/21 Time of Appointment with PCP: 10:40am Provider Appointment Comment: Located at [facility] Contact Information Discharge Discharge Address: [address] [place] [id number] Discharge Plan Discharge Items Patient Disposition: Home - Self-Care Reason For Visit: MAJOR DEPRESSIVE DISORDER Discharge Diagnosis: Major Depressive Disorder Activity: Resume your previous activity Non-emergency contact: Primary Care Provider and Therapist Call non-emergency contact if: you have any medication questions and your symptoms worsen Follow-up/Referrals: [place],[facility] [Primary Care Provider] - Diet: Regular Addtl Attending Provider Instructions: SPECIAL CARE INSTRUCTIONS: 1. Follow through with your scheduled aftercare appointments. If unable to keep an appointment, please call to reschedule. 2. Take your medication only as prescribed. Medication should not be changed or stopped without the approval of your doctor. In the event of worsening symptoms or concerns about side effects, contact your doctor immediately. 3. Utilize new healthy coping skills, anger management skills, and stress management skills learned during your hospitalization. Journal feelings and process them with a support person. Identify stressors or situations that may result in relapse, deterioration or inappropriate behaviors and develop a plan to deal with those issues. 4. If your coping skills are ineffective and you are in crisis, contact your outpatient providers for direction. If unable to reach your providers, please call the [facility] CRISIS LINE AT , go to the [facility] walk-in center at [address], [address], [place], or go to the closest Emergency Room. 5. Avoid alcohol and un-prescribed drugs. 6. You have been provided with the Mental Health Advance Directives Pamphlet for your review. 7. Your condition is stable for discharge to outpatient level of care, but recovery is an ongoing process. Ifthoughts to harm yourself or others return, follow the safety plan developed during your stay. Planning for a safe return home includes securing weapons. Our treatment team recommends weaponsbe removed from the home until your outpatient provider reassesses your progress. In rare cases where the items themselvescannot be removed, guns and ammunitionshould be secured separatelyand keys stored by a reliable personoutside of the home. If you were admitted on an involuntary commitment, the police or other legal authorities may be involved in this process. AFTERCARE APPOINTMENTS: * Please call your insurance company prior to your scheduled appointment to confirm your aftercare providers are covered. Take your insurance information to your appointments. WHO TO CALL AND WHEN: Medical Emergencies: For questions or emergencies related to your hospital stay, please contact the Inpatient Behavioral Health Unit at [phone]. A [employer] is on-call 12/04 for the Behavioral Health Unit for emergencies At any time you feel your situation is an emergency, you may also call 911 immediately. Pending Studies at Discharge: No Stand-Alone Forms: [facility] Medications and DC Order Prescriptions: New escitalopram oxalate 10 mg Tablet 10 mg PO QAM 30 Days Qty: 30 RF: 0 Continued Allergy tablet RF: 0 Discharge Orders: Discharge Order (Routine); Ordered 07/23/21 Ordered By: Bonnie Peng Admission Data Admit Date/Time: 07/19/21 14:24 Attending Provider: Bonnie Peng Admit Provider: Bonnie Peng Primary Care Provider: [facility] Other Interventions: Discharge Summary Assessment (RN) Last Done: 07/23/21 10:15 PSY Interdisciplinary Discharge Planning Last Done: 07/23/21 10:21 Coding Level of Care Code 57197 D/C day mgmt > 30 min Diagnoses Suicidal ideation R45.851 DORITA (generalized anxiety disorder) F41.1 MDD (major depressive disorder), recurrent episode F33.9 Time Spent (min) 40
== END 2021-07-23 11:35 | disposition home or self-care (01) | DRG 885 ==
LOC: ED 15:10 → 3S 07-19 14:17

== ENCOUNTER 2021-08-20 23:49 | Inpatient (IN) ==
[2021-08-21] MEDS ORDERED: SODIUM CHLORIDE 0.9% 500 ML IV SCH (00:15)
[2021-08-21 00:28] LABS: Basophils # (auto) 0.02 K/uL (0-0.2); Basophils % (auto) 0.2 %; Eosinophils # (auto) 0.06 K/uL (0-0.5); Eosinophils % (auto) 0.6 %; Hemoglobin 16.4 g/dL (14.0-18.0); Immature Granulocytes # (auto) 0.02 K/uL (0.00-0.02); Immature Granulocytes % (auto) 0.2 %; Lymphocytes % (auto) 25.1 %; Mean Corpuscular Hemoglobin 27.7 pg (25-34); Mean Corpuscular Hgb Conc 33.5 g/dL (32-36); Mean Corpuscular Volume 82.6 fL (80-100); Mean Platelet Volume 9.6 fL (7.4-10.4); Monocytes # (auto) 0.82 K/uL (0.11-0.59); Monocytes % (auto) 7.9 %; Neutrophils # (auto) 6.82 K/uL (1.4-6.5); Platelet Count 194 K/uL (130-400); RDW Coefficient of Variation 13.6 % (11.5-14.5); Red Blood Count 5.93 M/uL (4.7-6.1); White Blood Count 10.34 K/uL (4.8-10.8)
[2021-08-21 00:51] LABS: Albumin Level 4.4 gm/dl (3.4-5.0); Calcium 9.5 mg/dl (8.5-10.1); Creatinine Clr Calc Pharmacy 138.7 ml/min; Est GFR (Non-African American) 122.5 ml/min; Potassium 3.4 mmol/L (3.5-5.1)
[2021-08-21 00:54] LABS: Albumin Globulin Ratio 1.3 (0.9-2); Bilirubin,Total 0.6 mg/dl (0.2-1); Globulin 3.4 gm/dl (2.5-4.0); Total Protein 7.8 gm/dl (6.4-8.2)
[2021-08-21] MEDS ORDERED: LORazepam 1 MG/2 ML VIAL IV STA (01:03)
[2021-08-21] MEDS ORDERED: LORazepam 2 MG/4 ML VIAL ONE (01:04)
[2021-08-21 01:11] LABS: Acetaminophen < 2 ug/ml (10-30); Salicylate < 1.7 mg/dl (2.8-20)
[2021-08-21 01:56] LABS: Appearance Urine Clear (Clear); Bilirubin Urine Negative (Negative); Blood Urine Negative (Negative); Color Urine Yellow; Glucose Urine UA Negative (Negative); Ketones Urine Negative (Negative); Leukocyte Esterase Urine Negative (Negative); Nitrite Urine Negative (Negative); Protein Urine Negative (Negative); Specific Gravity Urine 1.005 (1.000-1.030); Urobilinogen Urine Negative (Negative); pH Urine 6.5 (4.5-7.5)
[2021-08-21 01:56] LABS: Base Excess ABG -2.2 mEq/L (-9-1.8); HCO3 ABG 22 mmol/L (19-24); Oxygen Saturation ABG 99.5 % (90-95); PCO2 ABG 38 mmHg (35-46); PO2 ABG 196 mmHg (80-95); pH ABG 7.39 (7.35-7.45)
[2021-08-21 02:05] LABS: Allen Test POS (Pos)
[2021-08-21 02:17] LABS: Amphetamines+Metham, Urine Neg (Neg); Barbiturates, Urine Neg (Neg); Benzodiazepine, Urine Neg (Neg); Cocaine, Urine Neg (Neg); MDMA (Ecstacy), Urine Neg (Neg); Methadone, Urine Neg (Neg); Opiate, Urine Neg (Neg); Phencyclidine, Urine Neg (Neg)
[2021-08-21 02:56] LABS: Magnesium 2.5 mg/dl (1.8-2.4)
[2021-08-21] MEDS: MAGNESIUM SULFATE / D5W 1 GM/100 ML BAG IV SCH ×2 (03:05→03:14)
--- NOTE | 2021-08-21 04:10 | History & Physical Report ---
Date of Service August 21, 2021 Assessment & Plan (1) Suicide attempt by drug overdose: Plan: Patient is a 21 year old male with PMHx MDD and DORITA that presents after intentional overdose of 30 tablets of lexapro, an unknown amount of Ibuprofen, and an unknown amount of alcohol with concerns for serotonin syndrome. Drug overdose with ?Serotonin syndrome -Patient taking 30 tablets of Escitalopram, unknown quantity of Ibuprofen, and Unknown quantity of alcohol around midnight -ED provider discussed with poison control which recommend EKG q1h in addition to repeat BMP if requiring bicarbonate gtt -If QRS >125 start bicarbonate gtt and monitor lytes -Keep Magnesium >2 -Alcohol level on admission 146.7 with last drink suspected around 12AM 08/21/2021 -Last EKG with QRS 100 and QTc 505 at midnight -Patient started on IV magnesium in the ED in addition to total 1mg IV Ativan for agitation -Will repeat EKG now and then q1h -Check BMP now, replete magnesium further if needed, last Mag level 2.5 -Should patient become agitated again, consider IV Ativan 1mg push PRN -If symptoms of agitation not controlled with benzodiazepines alone, would start patient on Cyproheptadine initial dose 12mg followed by 2mg q2h until clinical response is seen. Patient would likely require an NG tube for administration. -With concerns of possible oversedation to allow for adequate control of symptoms, will admit to ICU for close monitoring. MDD/DORITA w/ suicide attempt -Discontinue Lexapro at this time -Psych consulted Dispo: ICU FEN: NPO DVT: SCDs Code: Full History of Present Illness Primary Care Provider: [facility] Patient is a 21 year old male with PMHx MDD and DORITA that presents after intentional overdose of 30 tablets of lexapro, an unknown amount of Ibuprofen, and an unknown amount of alcohol with concerns for serotonin syndrome. Patient at this time is unable to answer questions secondary to required sedation due to agitation to prevent self harm. History is provided by the ED provider in addition to the patients mother, Jeanie Hernandez ([phone]). Patients mother notes that she had been talking to the patient around 10:30PM on 08/20/21 and at that point he had been upset in regards to a recent breakup. She notes that the conversation continued spinning out of control and the patient mentioned several times that he "don't want to live" in addition to "have nothing to live for." She notes that he stopped speaking with her on the phone shortly after due to being angry and was texting back and forth with her, ultimately leading to him telling her that he loves her and that he was tired and just wanted to sleep. At this point around 12AM, his mother had concerns in regards to his behaviors and asked his roommate to check up on him with the patient found to have taken multiple medications including a new, full bottle of Lexapro 10mg, an unknown quantity of ibuprofen, and alcohol. Patients roommate called 911. Patient in the ED was given 500mL bolus of NSS, 2gm of Magnesium IV, and 1mg of ativan for agitation. 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 Beliefs That Will Affect Care: None Feels Safe at Home: Yes Assistive Devices: Glasses Review of Systems Review of Systems: Unobtainable due to cognitive status and Unobtainable due to reduced consciousness Physical Exam Constitutional: well developed, well nourished and + altered mental status Eyes: reactive pupils and + dilated pupils Ocular horizontal clonus ENMT: external ear and nose normal, oropharynx normal Neck: trachea midline, no thyromegaly Respiratory: normal respiratory effort, lungs clear to auscultation Cardiovascular: Rate/Rhythm: regular rhythm and + tachycardic Heart Sounds: no murmur Gastrointestinal (Abdomen): Inspection/Auscultation: abdomen normal to inspection and normal bowel sounds; abdomen not distended Percussion/Palpation: abdomen soft; abdomen nontender Musculoskeletal: Head/Neck/Chest: normocephalic and head atraumatic Skin: no rashes, warm and dry Neurologic: Patellar reflexes 3+ and brisk Ankle clonus noted b/l Psychiatric: Orientation: + not alert and + not oriented x 3 Results & Data Results & Data ([facility]) Vital Signs (Past 12 Hours) Vital Signs Pulse Pulse Resp BP BP Pulse Ox 08/21/21 02:30 104 H 18 132/65 96 08/21/21 02:15 104 H 18 98 08/21/21 02:06 104 H 14 139/74 97 08/21/21 02:00 99 H 19 140/75 98 08/21/21 01:30 95 H 21 97 08/21/21 01:14 84 11 L 100 08/21/21 00:43 91 H 19 132/69 94 08/21/21 00:08 74 14 97 08/21/21 00:06 96 H 25 H 139/87 100 ECG Additional Comments: EKG with NSR at 99bpm, BB=827, JYI=833, SHc=458 Supervising Physician Co-Signing Physician Notes Patient seen and examined, chart reviewed, case discussed with DR. Acuna and I agree with his assessment and plan as above. In brief, Mr. Gallardo is a 21yo male with history of DORITA/MDD presenting with intentional overdose after a breakup with his girlfriend. He admits to taking Lexapro, Ibuprofen as well as EtOH On exam he has been intermittently tachycardic, noted to be agitated in the ER thus was given Ativan Pupils mildly dilated and equal bilaterally, ocular clonus noted Skin warm dry MMM +S1/S2, regular, tachycardic, no m/r/g Lungs - CTA Abd - +BS, soft, NT/ND Ext - no edema. +ankle clonus, +brisk patellar reflexes Labs and images reviewed Poison control center and patient's mother contacted 21yo male with DORITA/MDD presenting after intentional overdose with escitalopram, ibuprofen and EtOH presenting with concern for serotonin syndrome - tachycardia, agitation, ocular clonus, ankle clonus and brisk reflexes. Initial EKD with QRS of 100 and QTc of 503. Patient administered Mg in the ER as well as Ativan 1mg -Admit to MICU, q hourly EKGs to monitor intervals. Administration of Magnesium and Bicarbonate as needed -Consider Cyproheptidate administration for serotonin syndrome -Remainder of plan as above Resident Activity Tracking Resident Involvement: Resident Care Provided Care Provided: Adult [facility]
[2021-08-21] MEDS ORDERED: ICU PROTOCOL FOR HYPERGLYCEMIA PRN (04:37)
[2021-08-21] MEDS ORDERED: LORazepam 1 MG/2 ML VIAL IV PRN (04:48)
[2021-08-21 06:11] LABS: BUN Creatinine Ratio 9.1 (10-20); Creatinine Clr Calc Pharmacy 145.2 ml/min; Est GFR (African American) 144.7 ml/min; Est GFR (Non-African American) 124.8 ml/min; Magnesium 3.2 mg/dl (1.8-2.4); Potassium 4.1 mmol/L (3.5-5.1)
--- NOTE | 2021-08-21 06:13 | Critical Care Consultation ---
Date of Consultation August 21, 2021 Assessment & Plan (1) Admitted to intensive care unit: Reason Critically Ill: 21-year-old male with suicide attempt utilizing Lexapro, ibuprofen, and Advil requiring close hemodynamic monitoring for cardiac dysrhythmias or escalating neurologic symptoms status post ingestion. NEURO/PSYCH - * CAM ICU: NEGATIVE * Suicidality: * Active suicide attempt. * Patient with significant past medical history of depression and anxiety. * Patient will be one-to-one precautions throughout stay. * Per Poison Control Center, keep magnesium level greater than 1. Monitor QRS and QTc. Ativan for agitation. Consider advanced medications if patient presented with worsening serotonin syndrome presentation. * Question of whether the patient utilized Benadryl as well. * Agree with repeat acetaminophen and salicylate levels. CARDIAC/VASCULAR - * Overdose attempt: * Monitor QTC/QRS in the setting of SSRI overdose. * Keep magnesium greater than 2. * Bicarb drip if necessary. * EKG: Normal sinus rhythm at 99 bpm. QRS 100. QTc [address] or T wave changes. * Monitor on telemetry. RESPIRATORY - * Airway protection: * Monitor the somnolent patient with CO2 monitor until he is more lucid. * Low threshold for intubation in the event of respiratory failure. GI/NUTRITION - * N.p.o. over the next several hours. RENAL/LYTES - * No significant electrolyte derangements. * Monitor magnesium levels closely to maintain magnesium greater than 2 to help prevent QTC/QRS prolongation. - * No concerns at this time. ENDO - * No history of diabetes or thyroid disease. * BSGs per unit protocol. ISS --> gtt per unit policy. HEME - * Stable H&H ID - * No concern for infectious contribution at this time. LINES/IV ACCESS - * PIVs x2 DVT PROPHYLAXIS - * SCDs I have personally spent 32 minutes of critical care time in the direct management of this patient. This is a life/limb threatening event. This includes time spent evaluating patient, direct bedside care, chart review, placing orders, interpretation of diagnostic studies, discussion with consultants, patient, and family members, as well as other required patient management activities. This time is exclusive of all separately billable procedures, and teaching time and separate from and in addition to any other critical care service time. Thank you for allowing us to participate in the care of this patient. Please refer to my attending physician's documentation for any further recommendations. (2) Suicide attempt by drug overdose: (3) Suicidal ideation: (4) MDD (major depressive disorder), recurrent episode: (5) DORITA (generalized anxiety disorder): History of Present Illness Attending Physician: Oksana Erickson DO History of Present Illness Patient is a 21-year-old [employer] student with a significant past medical history of major depressive disorder and generalized anxiety disorder who presented to the emergency department today after a suicide attempt. The patient apparently had been having relationship issues and took 30 days worth of Lexapro (30, 10 mg tablets), an unknown quantity of Ibuprofen, and a large amount of alcohol at approximately midnight. Patient evaluated in the emergency department after attempted suicide. The patient did receive 2 g of magnesium and 1 mg of IV Ativan secondary agitation. Patient to be admitted to the ICU for close evaluation and hemodynamic monitoring status post significant ingestion. Upon assessment in the emergency department, the patient is somnolent, but does awake and answer questions appropriately. He knows that he is in [place] and at the hospital. He admits to attempting suicide. He states that he took "30 days worth" of Lexapro. When asked about Advil, he states that he took "Jerman adryl" however he was unable to elaborate further on this. He denies any complaints of pain. Patient is obviously suicidal with active attempt. Allergies Allergy/AdvReac Type Severity Reaction Status Date / Time No Known Allergies Allergy Unverified 08/21/21 00:12 Home Medications Medication Instructions Recorded Confirmed Type escitalopram oxalate 10 mg tablet 10 mg PO QAM 30 Days #30 tab 07/23/21 08/21/21 Rx Patient History Medical History Suicidal ideation Social History Smoking Status: Never smoker Preferred Language: Indonesian Communication Ability: Effective Publications Inspector Required: No Beliefs That Will Affect Care: None Feels Safe at Home: Yes Assistive Devices: Glasses Review of Systems Review of Systems: All systems reviewed & are unremarkable except as noted in HPI & below Physical Exam Physical Exam: VITAL SIGNS - Vital signs and nursing notes were reviewed. GENERAL - 21-year-old male appearing his stated age who is in no acute distress. Somnolent, but does awaken to answer simple questions. HEAD - Normocephalic, Atraumatic. No Thomas's Sign or Raccoon's Eyes. No depressed skull fractures palpable. EYES - vertical nystagmus. Sclera anicteric. Palpebral conjunctiva pink and moist with no injection noted. EARS - No deformities of external structures noted on gross examination bilaterally. NOSE - Midline and without cyanosis. No epistaxis or purulent drainage noted. MOUTH/OROPHARYNX - Without perioral cyanosis. Buccal mucosa pink and moist and without leukoplakia. NECK - Neck with FROM. Supple to palpation. No lymphadenopathy noted. No nuchal rigidity. LUNGS - Chest wall symmetric without accessory muscle use, intercostals retractions, or central cyanosis. Normal vesicular breath sounds CTA B/L. No wheezes, rales, or rhonchi appreciated. CARDIAC - RRR with S1/S2. No murmur, rubs, or gallops appreciated. ABDOMEN - Abdominal contour flat without pulsations or visible masses. BS normoactive all four quadrants. No tenderness, palpable masses, hepatosplenomegaly, or ascites noted. EXTREMITIES - No pretibial edema present. +3/5 radial and dorsalis pedis pulses palpated throughout. NEUROLOGIC - Cranial nerves II through XII grossly intact. Sensory intact to light touch throughout. PSYCH -awake, alert, and oriented x3. Active suicidal ideation. Somnolent secondary to medication ingestion with associated alcohol and Ativan. Results & Data Results & Data ([facility]) Vital Signs (Past 12 Hours) Vital Signs Pulse Pulse Resp BP BP Pulse Ox 08/21/21 05:09 83 18 130/72 97 08/21/21 02:30 104 H 18 132/65 96 08/21/21 02:15 104 H 18 98 08/21/21 02:06 104 H 14 139/74 97 08/21/21 02:00 99 H 19 140/75 98 08/21/21 01:30 95 H 21 97 08/21/21 01:14 84 11 L 100 08/21/21 00:43 91 H 19 132/69 94 08/21/21 00:08 74 14 97 08/21/21 00:06 96 H 25 H 139/87 100 Coding Level of Care Code Critical Care 1st 30-74 mins Diagnoses Admitted to intensive care unit Z78.9 Suicide attempt by drug overdose T50.902A Suicidal ideation R45.851 MDD (major depressive disorder), recurrent episode F33.9 DORITA (generalized anxiety disorder) F41.1 Time Spent (min) 32
--- NOTE | 2021-08-21 07:01 | Billing Data ---
Date of Service August 21, 2021 Coding Level of Care Code 48914 Initial Inpt Care Lvl 2
--- NOTE | 2021-08-21 07:37 | XRay Report ---
SINGLE VIEW CHEST CLINICAL HISTORY: Overdose FINDINGS: An AP, portable, supine chest radiograph is obtained. No prior studies are available for co mparison at the time of dictation. The cardiomediastinal silhouette is unremarkable. The lungs and p leural spaces are clear. No pneumothorax is seen. The bony thorax is grossly intact. IMPRESSION: No active disease in the chest. ACT 112: Negative or not required by law. Electronically signed by: Sunyn Serrano M.D. 08/21/2021 7:35 AM
[2021-08-21 07:44] LABS: Basophils # (auto) 0.03 K/uL (0-0.2); Basophils % (auto) 0.4 %; Eosinophils # (auto) 0.04 K/uL (0-0.5); Eosinophils % (auto) 0.5 %; Hematocrit (blood only) 45.3 % (42-52); Hemoglobin 15.1 g/dL (14.0-18.0); Immature Granulocytes # (auto) 0.03 K/uL (0.00-0.02); Immature Granulocytes % (auto) 0.4 %; Lymphocytes # (auto) 1.72 K/uL (1.2-3.4); Lymphocytes % (auto) 20.3 %; Mean Corpuscular Hemoglobin 27.4 pg (25-34); Mean Corpuscular Hgb Conc 33.3 g/dL (32-36); Mean Corpuscular Volume 82.1 fL (80-100); Mean Platelet Volume 9.2 fL (7.4-10.4); Monocytes # (auto) 0.57 K/uL (0.11-0.59); Monocytes % (auto) 6.7 %; Neutrophils # (auto) 6.08 K/uL (1.4-6.5); Neutrophils % (auto) 71.7 %; Platelet Count 188 K/uL (130-400); RDW Coefficient of Variation 13.8 % (11.5-14.5); RDW Standard Deviation 41.7 fL (36.4-46.3); Red Blood Count 5.52 M/uL (4.7-6.1); White Blood Count 8.47 K/uL (4.8-10.8)
[2021-08-21 08:19] LABS: BUN Creatinine Ratio 8.9 (10-20); Blood Urea Nitrogen 7 mg/dl (7-18); Calcium 8.6 mg/dl (8.5-10.1); Carbon Dioxide 23 mmol/L (21-32); Chloride 113 mmol/L (98-107); Creatinine Clr Calc Pharmacy 153.4 ml/min; Est GFR (African American) > 150.0 ml/min; Est GFR (Non-African American) 133.5 ml/min; Glucose 105 mg/dl (70-99); Potassium 4.2 mmol/L (3.5-5.1); Sodium 144 mmol/L (136-145)
[2021-08-21 12:03] LABS: BUN Creatinine Ratio 8.6 (10-20); Blood Urea Nitrogen 7 mg/dl (7-18); Calcium 9.1 mg/dl (8.5-10.1); Carbon Dioxide 25 mmol/L (21-32); Chloride 110 mmol/L (98-107); Creatinine Clr Calc Pharmacy 147.4 ml/min; Est GFR (African American) > 150.0 ml/min; Est GFR (Non-African American) 131.3 ml/min; Glucose 99 mg/dl (70-99); Sodium 140 mmol/L (136-145)
--- NOTE | 2021-08-21 12:07 | Psychiatric Consultation ---
Date of Consultation August 21, 2021 Impression / Recommendations Impression Willy is a 21 yo man and [employer] student with a history of MDD, DORITA and SI with recent inpatient psychiatric hospitalization at [facility]. He is well known to me as I treated him during his recent inpatient psychiatry admission. Diagnostically consistent with recurrent MDD with suicide attempt in the context of recent psychosocial stressor of romantic breakup which triggered previous SI and depressive episodes. He is at high acute risk of self-harm given suicide attempt with lethal potential, non-help seeking, MDD, remains regretful about surviving attempt and recent breakup. Once medically stable he will require psychiatric hospitalization for diagnostic clarification, safety and stabilization, medication management and development of further coping skills. Agree that clonus and hyperreflexia on admission are concerning for serotonin syndrome and agree with ongoing supportive care and treatment from critical care and hospitalist providers. (1) Suicide attempt by drug overdose: (2) MDD (major depressive disorder), recurrent episode: (3) DORITA (generalized anxiety disorder): -Continue 1-on-1 observation for safety -May not leave AMA or without clearance from psychiatry, he will require inpatient psychiatric treatment on 201 or 302 status once medically cleared -Hold lexapro in context of overdose and concern for serotonin syndrome -He was not alert enough to sign ROIs so will reattempt tomorrow so we can contact his parents if he allows. Risk Factors Assessment Do You Have Access To A Gun?: No Mental Health Diagnoses: Yes Previous Attempt; Highly Lethal: Yes Hopelessness: Yes Protective Factors Assessment Employed: Yes Stable Relationships: Yes Supportive Family: Yes Good Rapport with Provider: Yes Psych History Identifying Data Jorge Gallardo is a 21 yo man and [employer] student with a history of MDD, DORITA and SI with recent psychiatric hospitalization ([facility] 07/19/21 - 07/23/21) was admitted medically after a suicide attempt via ingestion of escitalopram (~30 tablets of 10mg strength), alcohol and Benadryl (~10 tablets, unknown strength). Psychiatry was consulted for risk assessment, management and disposition recommendations. Chief Complaint "Things didn't get better". History of Present Illness Willy is a 21 yo man and [employer] student with a history of MDD, DORITA and SI with recent inpatient psychiatric hospitalization at [facility]. He is well known to me as I treated him during his recent inpatient psychiatry admission. Per chart review he presented yesterday night to the ED via EMS after an intentional suicide attempt of lexapro, alcohol and possible ibuprofen (today Willy denies ibuprofen but clarifies he took benadryl of unknown strength about 10 tablets). Per admission H&P his mother provided collateral that he had called her just prior to the attempt expressing depressed mood and SI in the context of a recent breakup and feeling hopeless which lead her to alert his roommates who contacted EMS. Today iWlly remains quite tired though can answer some questions briefly with prompts to maintain his attention/alertness. He confirms that the overdose was a suicide attempt and states it was somewhat impulsive in that he did not plan out the day/time but had been having intensifying thoughts of SI over the previous few days with thoughts of overdosing on his medication. He recently refilled his lexapro script a few days ago. He states that after leaving the hospital he was still in somewhat of a relationship with his girlfriend but that they official broke up two weeks ago and since then "things didn't get better". He endorsed drinking more alcohol over the past two weeks. Currently he is regretful about having survived the suicide attempt but is saying he will be agreeable to inpatient psychiatric treatment once he's medically cleared. Confirmed he had been taking the lexapro daily after discharge last month. Past Psychiatric History Outpatient Services: therapist who he sees once to twice weekly since his discharge last month from [facility] Previous Psych Admissions: one-[facility] 07/19/21 - 07/23/21 Do You Have Access To A Gun?: No History of Previous Suicide Attempt: No Past Medication Trials: has been on lexapro 10mg qd for the last one month since admission at [facility] at [facility] Allergies Allergy/AdvReac Type Severity Reaction Status Date / Time No Known Allergies Allergy Unverified 08/21/21 00:12 Home Medications Medication Instructions Recorded Confirmed Type escitalopram oxalate 10 mg tablet 10 mg PO QAM 30 Days #30 tab 07/23/21 08/21/21 Rx Family History Depression in PGM and PGF Substance Abuse History Increasing alcohol use over the last few weeks. Personal History Living Arrangements: Apartment Employment Status: Student Beliefs That Will Affect Care: None Patient History Medical History Suicidal ideation Social History Smoking Status: Never smoker Hx Alcohol Use: Yes Hx Substance Use: Yes Last Used Substance: Just Prior to Arrival Substance Use Type Other:: Overdosed on Lexapro Preferred Language: Norwegian Communication Ability: Effective Art Librarian Required: No Beliefs That Will Affect Care: None Current Living Situation: Other Current Living Situation Comment: [employer] student- lives with roommates Feels Safe at Home: Yes and Declines to Answer Assistive Devices: Glasses Physical Exam Psychiatric: Orientation: oriented to person and oriented to place; + not alert Apperance: appropriately dressed Eye Contact: + poor eye contact Motor Behavior: no abnormal motor movements (no observed clonus but reports of occular clonus last night) Speech: + abnormal rate/rhythm/volume of speech (soft, brief) Affect: + flat affect Mood: + depressed mood Thought Process: goal directed thought process Thought Content: reality based without delusions Suicidal Thoughts: + reports suicidal thoughts (remains regretful he survived attempt) Homicidal Thoughts: denies homicidal thoughts Hallucinations: no auditory hallucinations and no visual hallucinations Cognition: recent memory grossly intact, remote memory grossly intact and language grossly intact; + attention not intact Estimated Intelligence: consistent with education level Insight: + fair insight Judgement: + limited judgement Vital Signs (Past 24 Hours): Last Vital Signs Temp 37.0 C 08/21/21 07:31 Pulse 97 H 08/21/21 08:00 Resp 15 08/21/21 08:00 BP 133/69 08/21/21 07:31 Pulse Ox 97 08/21/21 08:00 Review of Systems All systems reviewed & are unremarkable except as noted in HPI & below (he denies any pain, denies any current muscle jerks/clonus) Coding Level of Care Code 99826 Inpt Consult Level 3 Diagnoses Suicide attempt by drug overdose T50.902A MDD (major depressive disorder), recurrent episode F33.9 DORITA (generalized anxiety disorder) F41.1
--- NOTE | 2021-08-21 14:24 | Electrocardiogram Report ---
Test Reason : Blood Pressure : / mmHG Vent. Rate : 099 BPM Atrial Rate : 099 BPM P-R Int : 132 ms QRS Dur : 100 ms QT Int : 392 ms P-R-T Axes : 072 072 050 degrees QTc Int : 503 ms Normal sinus rhythm Prolonged QT Abnormal ECG No previous ECGs available Confirmed by Elias Krishna ([id number]) on 08/21/2021 2:24:21 PM Referred By: REFERRED SELF Confirmed By:Devin Krishna
--- NOTE | 2021-08-21 14:26 | Electrocardiogram Report ---
Test Reason : Blood Pressure : / mmHG Vent. Rate : 089 BPM Atrial Rate : 089 BPM P-R Int : 128 ms QRS Dur : 084 ms QT Int : 380 ms P-R-T Axes : 073 086 069 degrees QTc Int : 462 ms Normal sinus rhythm Possible Left atrial enlargement Borderline ECG When compared with ECG of 21-AUG-2021 02:10, (unconfirmed) No significant change was found Confirmed by Elias Krishna ([id number]) on 08/21/2021 2:25:40 PM Referred By: REFERRED SELF Confirmed By:Devin Krishna
--- NOTE | 2021-08-21 14:27 | Electrocardiogram Report ---
Test Reason : Blood Pressure : / mmHG Vent. Rate : 100 BPM Atrial Rate : 100 BPM P-R Int : 126 ms QRS Dur : 094 ms QT Int : 360 ms P-R-T Axes : 077 064 071 degrees QTc Int : 464 ms Normal sinus rhythm Nonspecific T wave abnormality Prolonged QT Abnormal ECG When compared with ECG of 21-AUG-2021 04:43, (unconfirmed) No significant change was found Confirmed by Elias Krishna ([id number]) on 08/21/2021 2:27:14 PM Referred By: REFERRED SELF Confirmed By:Devin Krishna
--- NOTE | 2021-08-21 14:31 | Electrocardiogram Report ---
Test Reason : Blood Pressure : / mmHG Vent. Rate : 095 BPM Atrial Rate : 095 BPM P-R Int : 124 ms QRS Dur : 094 ms QT Int : 364 ms P-R-T Axes : 079 078 077 degrees QTc Int : 457 ms Normal sinus rhythm Nonspecific T wave abnormality Abnormal ECG When compared with ECG of 21-AUG-2021 07:45, (unconfirmed) No significant change was found Confirmed by Elias Krishna ([id number]) on 08/21/2021 2:30:27 PM Referred By: REFERRED SELF Confirmed By:Devin Krishna
--- NOTE | 2021-08-21 14:33 | Electrocardiogram Report ---
Test Reason : Blood Pressure : / mmHG Vent. Rate : 090 BPM Atrial Rate : 090 BPM P-R Int : 124 ms QRS Dur : 094 ms QT Int : 366 ms P-R-T Axes : 077 076 073 degrees QTc Int : 447 ms Normal sinus rhythm Normal ECG When compared with ECG of 21-AUG-2021 11:26, (unconfirmed) No significant change was found Confirmed by Elias Krishna ([id number]) on 08/21/2021 2:33:15 PM Referred By: REFERRED SELF Confirmed By:Devin Krishna
--- NOTE | 2021-08-21 14:33 | Electrocardiogram Report ---
Test Reason : Blood Pressure : / mmHG Vent. Rate : 092 BPM Atrial Rate : 092 BPM P-R Int : 130 ms QRS Dur : 094 ms QT Int : 360 ms P-R-T Axes : 068 075 073 degrees QTc Int : 445 ms Normal sinus rhythm Normal ECG When compared with ECG of 21-AUG-2021 10:24, (unconfirmed) No significant change was found Confirmed by Elias Krishna ([id number]) on 08/21/2021 2:32:50 PM Referred By: REFERRED SELF Confirmed By:Devin Krishna
--- NOTE | 2021-08-21 14:34 | Electrocardiogram Report ---
Test Reason : Blood Pressure : / mmHG Vent. Rate : 087 BPM Atrial Rate : 087 BPM P-R Int : 124 ms QRS Dur : 094 ms QT Int : 376 ms P-R-T Axes : 079 072 076 degrees QTc Int : 452 ms Normal sinus rhythm Nonspecific T wave abnormality Abnormal ECG When compared with ECG of 21-AUG-2021 12:32, (unconfirmed) No significant change was found Confirmed by Elias Krishna ([id number]) on 08/21/2021 2:33:34 PM Referred By: REFERRED SELF Confirmed By:Devin Krishna
--- NOTE | 2021-08-21 15:32 | Medical Student Progress Note ---
Date of Service August 21, 2021 Assessment & Plan (1) Polysubstance overdose: Plan: Jorge is a 21 yo male with a pmh of MDD, DORITA, and suicidal ideation who was admitted after a polysubstance overdose. - Pt consumed 30 tablets (10mg) of Lexapro; unknown quantity of benadryl and ibuprofen; ETOH - UDS: EtOH 146.7; acetaminophen < 2; salicylates < 1.7 - Poison Control Contacted on Arrival: If QRS >125 start bicarbonate gtt and monitor electrolytes. Keep magnesium > 2. - QRS most recently 94 ms - Most Recent Mg2+ is 3.2 - we had concerns for serotonin syndrome on admission given mild tachycardia and QTc prolongation; however, there was hyporeflexia, reduced bowel sounds, and lack of diaphoresis. - Anticipate condition improving; lorazepam 1mg PRN for agitation 2) Suicide Attempt: - inpatient psychiatric consult placed, appreciate recs - one to one observation 3) QTc prolongation: - QTc (0.456) : suspect 2ndary to SSRI overdose. Hold SSRI and avoid QTc prolonging medications. Monitor on telemetry. - repeat EKG in AM 4) Elevated Transaminases - AST: 45; ALT: 84 - likely 2ndary to polysubstance overdose as seen above - Recheck CMP in AM 5) MDD: holding Lexapro until cleared medically from risk of serotonin syndrome. Consulted psychiatry. 6) DORITA: - holding Lexapro until cleared medically from risk of serotonin syndrome. Consulted psychiatry. Plan: I saw the patient this morning independent of the medical student resident physician and confirmed herrmann portions of the history and physical examination. This patient was admitted earlier today by the overnight team. Briefly, 21-year-old male with polysubstance overdose/suicide attempt now in the ICU. Patient with noted history of depression and anxiety, consumed 300 mg of Lexapro and an unknown quality of Benadryl, ibuprofen, and alcohol. Upon presentation to the emergency department, EtOH level 146.7, acetaminophen and salicylate levels were undetectable. Upon my examination this morning, the patient was sleeping but awakens to voice. He appears tired and lethargic. He is alert and oriented. 120/69, 102, 13, 37 C, 96% on nasal cannula, 4 L/min Polysubstance overdose Suicidal ideation and attempt Patient remains under care of critical care team. Monitor BMP, magnesium level Serial EKG to monitor QT interval Psychiatric consultation Admission and Anticipated Discharge Date Admission Date: August 21, 2021 Subjective This morning, pt was able to verbalize orientation to person, place, and time; however, due to level of consciousness the rest of the HPI and ROS was unable to be obtained. Physical Exam Constitutional: General: obtunded Eyes: no conjunctival abnormality, no scleral abnormality and no EOM movement deficit ENMT: external ear and nose normal, oropharynx normal Neck: trachea midline Respiratory: normal respiratory effort, lungs clear to auscultation Cardiovascular: Tachycardic ~ 100, regular rhythm, no murmurs, rubs, or gallops. Gastrointestinal (Abdomen): Bowel sounds hypoactive, no tenderness to palpation observed. Skin: no rashes observed Neurologic: Cranial Nerves: EOM intact bilaterally and normal hearing DTR's were hyporeflexic in lower extremities. Tone was normal. Psychiatric: Orientation: + not alert Results & Data ([place]) Vital Signs (Past 12 Hours) Vital Signs Temp Pulse Pulse Resp BP BP Pulse Ox 08/21/21 12:00 102 H 13 96 08/21/21 11:00 102 H 14 128/69 97 08/21/21 10:00 101 H 20 97 08/21/21 09:00 103 H 17 98 08/21/21 08:00 97 H 15 97 08/21/21 07:31 37.0 C 98 H 20 133/69 98 08/21/21 07:00 106 H 127/64 95 08/21/21 06:45 106 H 16 135/58 L 95 08/21/21 05:09 83 18 130/72 97 08/21/21 02:30 104 H 18 132/65 96 08/21/21 02:15 104 H 18 98 Laboratory Results EtOH 146.7; acetaminophen < 2; salicylates < 1.7 ; Mg2+ 3.2 High; AST: 45 H; ALT 84 H
--- NOTE | 2021-08-21 17:10 | Electrocardiogram Report ---
Test Reason : Blood Pressure : / mmHG Vent. Rate : 092 BPM Atrial Rate : 092 BPM P-R Int : 126 ms QRS Dur : 094 ms QT Int : 368 ms P-R-T Axes : 080 072 079 degrees QTc Int : 455 ms Normal sinus rhythm Nonspecific T wave abnormality Abnormal ECG When compared with ECG of 21-AUG-2021 13:37, No significant change was found Confirmed by Elias Krishna ([id number]) on 08/21/2021 5:10:09 PM Referred By: REFERRED SELF Confirmed By:Devin Krishna
--- NOTE | 2021-08-21 17:10 | Electrocardiogram Report ---
Test Reason : Blood Pressure : / mmHG Vent. Rate : 089 BPM Atrial Rate : 089 BPM P-R Int : 130 ms QRS Dur : 094 ms QT Int : 376 ms P-R-T Axes : 082 075 077 degrees QTc Int : 457 ms Normal sinus rhythm Nonspecific T wave abnormality Abnormal ECG When compared with ECG of 21-AUG-2021 14:26, (unconfirmed) No significant change was found Confirmed by Elias Krishna ([id number]) on 08/21/2021 5:09:59 PM Referred By: REFERRED SELF Confirmed By:Devin Krishna
--- NOTE | 2021-08-21 18:15 | Hospitalist Progress Note ---
Date of Service August 21, 2021 Assessment & Plan (1) Polysubstance overdose: Plan: Jorge is a 21 yo male with a pmh of MDD, DORITA, and suicidal ideation who was admitted after a polysubstance overdose. 1) Polypharmacy overdose - Pt consumed 30 tablets (10mg) of Lexapro; unknown quantity of benadryl and ibuprofen; ETOH - UDS: EtOH 146.7; acetaminophen < 2; salicylates < 1.7 - Poison Control Contacted on Arrival: If QRS >125 start bicarbonate gtt and monitor electrolytes. Keep magnesium > 2. - QRS most recently 94 ms - Most Recent Mg2+ is 3.2 - Currently being managed by ICU. - Initial concerns for serotonin syndrome on admission given mild tachycardia and QTc prolongation; however, there was hyporeflexia, reduced bowel sounds, and lack of diaphoresis which lowers this on the differential. - Anticipate condition improving; lorazepam 1mg PRN for agitation - Likely downgrade tomorrow 2) Suicide Attempt: - inpatient psychiatric consult placed, appreciate consultation - one to one observation 3) QTc prolongation: - QTc (0.456) : suspect secondary to SSRI overdose. Hold SSRI. Monitor on telemetry. - repeat EKG in AM - Avoid Zofran and other QT prolonging agents. 4) Elevated Transaminases - AST: 45; ALT: 84 - likely 2ndary to polysubstance overdose as seen above - Recheck CMP in AM 5) MDD - holding Lexapro until cleared medically from risk of serotonin syndrome. Consulted psychiatry. 6) DORITA - holding Lexapro until cleared medically from risk of serotonin syndrome. Will follow psychiatry recommendations. Dispo: ICU DVT prophylaxis: SCDs Diet: Regular Admission and Anticipated Discharge Date Admission Date: August 21, 2021 Supervising Physician Co-Signing Physician Notes I saw the patient this morning independent of the medical student resident physician and confirmed herrmann portions of the history and physical examination. This patient was admitted earlier today by the overnight team. Briefly, 21-year-old male with polysubstance overdose/suicide attempt now in the ICU. Patient with noted history of depression and anxiety, consumed 300 mg of Lexapro and an unknown quality of Benadryl, ibuprofen, and alcohol. Upon presentation to the emergency department, EtOH level 146.7, acetaminophen and salicylate levels were undetectable. Upon my examination this morning, the patient was sleeping but awakens to voice. He appears tired and lethargic. He is alert and oriented. 120/69, 102, 13, 37 C, 96% on nasal cannula, 4 L/min Polysubstance overdose Suicidal ideation and attempt Patient remains under care of critical care team. Monitor BMP, magnesium level Serial EKG to monitor QT interval Psychiatric consultation Subjective Patient seen at bedside this morning. Patient is quite obtunded and answers and only yes or no to some questions. No meaningful HPI or review of systems was obtainable at this time. Review of Systems Review of Systems: Unobtainable due to cognitive status Physical Exam Constitutional: well developed, well nourished and + lethargic; no acute distress Eyes: + anicteric sclerae and + dilated pupils; no nystagmus Neck: trachea midline, no thyromegaly Respiratory: normal respiratory effort, lungs clear to auscultation Cardiovascular: RRR, no murmur, no edema Gastrointestinal (Abdomen): Inspection/Auscultation: abdomen normal to inspection and normal bowel sounds No reaction to tenderness on palpation of abdomen. Skin: no rashes, warm and dry Neurologic: Diffuse hyporeflexia throughout. Psychiatric: Orientation: + not alert Results & Data Results & Data ([facility]) Vital Signs (Past 12 Hours) Vital Signs Temp Pulse Pulse Resp BP BP Pulse Ox 08/21/21 12:00 102 H 13 96 08/21/21 11:00 102 H 14 128/69 97 08/21/21 10:00 101 H 20 97 08/21/21 09:00 103 H 17 98 08/21/21 08:00 97 H 15 97 08/21/21 07:31 37.0 C 98 H 20 133/69 98 08/21/21 07:00 106 H 127/64 95 08/21/21 06:45 106 H 16 135/58 L 95 Resident Activity Tracking Resident Involvement: Resident Care Provided Care Provided: Adult [facility] Medicine
[2021-08-21 19:04] LABS: BUN Creatinine Ratio 12.3 (10-20); Calcium 9.3 mg/dl (8.5-10.1); Est GFR (Non-African American) 128.6 ml/min; Magnesium 2.5 mg/dl (1.8-2.4)
--- NOTE | 2021-08-21 19:58 | Emergency Department Note ---
Impression & Plan Suicide attempt by multiple drug overdose Admit to the [facility] service ED Provider Note NAME: URIEL FAUST AGE: 21 SEX: M ARRIVES VIA: Ambulance INFORMANT: Patient police and EMS ED PROVIDER(S): Sandra Luis DO CHIEF COMPLAINT: Overdose PLAN: Disposition: Admit to the ICU and [facility] service Condition: Critical MEDICAL DECISION MAKING: This is a 21-year-old male patient who took an overdose of multiple medications in an effort to kill himself. The patient tried to end his life by taking multiple different medications. Friends called police and EMS when they found out what he did. The patient was semiresponsive upon presentation. Poison control was contacted. Supportive care measures were followed. The patient began to hyperventilate throughout his stay here in the emergency department. I questioned him again and he added that he also took a bottle of ibuprofen in addition to the escitalopram, alcohol and Benadryl. The patient's QTC did prolonged to greater than 500 ms and therefore he was given IV magnesium sulfate. His QTC and QRS complexes were watched closely. He was fluid resuscitated. I kept his mother abreast of the situation by phone. He will be admitted to the ICU in the care of the [facility] group. Triage Nursing notes reviewed and agree with them. Additional history obtained from the scene EMS as well as the patient's mother Prior medical records reviewed Vital Signs: reviewed and remarkable for tachycardia Differential diagnosis: Suicide attempt, polysubstance overdose, alcohol overdose ER treatment provided: IV normal saline bolus IV magnesium IV Ativan Diagnostics interpreted by me: ECG # 1 normal sinus rhythm at a rate of 91 with a QTC of 483 ms. There is no signs of ischemia or ectopy. ECG #2 normal sinus rhythm at a rate of 99 with a QRS duration of 100 ms and a QTC of 503 ms. There is no signs of ischemia no ectopy. ECG #3 normal sinus rhythm at a rate of 89 with a QRS duration of 84 ms and a QTC of 462 ms. There is no ectopy or signs of ischemia Cardiac Monitoring: Normal sinus rhythm at a rate of 91. Laboratory studies: See below Imaging studies: As per my interpretation Portable chest x-ray: No acute pulmonary infiltrates or consolidations HPI: 21/M arrives for evaluation of intensional overdose. The patient took an intentional overdose tonight of an entire bottle of escitalopram which was 30 tablets of 10 mg tabs along with mixed drinks and approximately 10 tablets of Benadryl in an effort to end his life as he describes it. The patient would not give me any specific details as to why but states that he just wants to . ROS: See above HPI for pertinent positives & negatives. A total of 10 systems reviewed and were otherwise negative. PAST MEDICAL HISTORY: Depression PAST SURGICAL HISTORY:See Below FAMILY HISTORY:See Below SOCIAL HISTORY:Patient is a student at [employer] MEDICATIONS:Escitalopram ALLERGIES:None VITALS:See Below PHYSICAL EXAMINATION: HEENT: Head - normocephalic and atraumatic Pupils are equal, round, and reactive to light. Extraocular eye muscles are intact, and sclera are anicteric. There was moderate scleral icterus. Nose - moist nasal mucosa without discharge. Mouth - moist buccal mucosa. Oropharynx is nonerythematous and there is no tonsillar exudate or edema noted. Neck: Supple; no JVD, nuchal rigidity, cervical lymphadenopathy. Heart: Regular rate and rhythm. There is a normal S1 and S2 with no murmurs, clicks, or gallops appreciated. Lungs: Clear to auscultation bilaterally with no wheezes, rales, or rhonchi. Abdomen: Soft, completely nontender, nondistended, with good bowel sounds. There are no palpable pulsatile masses or hepatosplenomegaly. There is no guarding, rigidity, or rebound noted. Extremities: No evidence of cyanosis, clubbing, or edema. There are easily palpable peripheral pulses. Skin: warm and dry with good turgor and no rashes. ED COURSE: Patient was evaluated quickly in room B1. A complete history and physical was performed. An order was placed for continuous cardiac monitoring. The patient was in a normal sinus rhythm at a rate of 91. A complete history and physical was performed. A twelve-lead EKG was obtained as described above. The patient began to receive IV normal saline solution. Poison control was contacted. After approximate 1 hour, the patient's twelve-lead EKG was repeated and it was noted that he had a prolonged QT so he was given a dose of IV magnesium. Did keep the patient's mother abreast of the situation. Patient began to hyperventilate. I tried to learning coach his breathing. I did begin to question the patient if he had taken anything else. He told me that he did take a bottle of ibuprofen. I ordered an ABG which did not show any significant acid-base abnormality. He was given a dose of IV Ativan I have personally spent greater than 90 minutes of critical care time in the direct management of this patient. This includes bedside care, interpretation of diagnostic studies, and testing, discussion with consultants, patient, and family members, and other required patient management activities. This 90 minutes is in excess of all separately billable procedures. Sandra Luis, DO Past Med/Surg History Medical History Suicidal ideation Social History Smoking Status: Never smoker Hx Alcohol Use: Yes Hx Substance Use: Yes Last Used Substance: Just Prior to Arrival Substance Use Type Other:: Overdosed on Lexapro Preferred Language: Jamaican Communication Ability: Effective Emblem Cutter Required: No Beliefs That Will Affect Care: None Current Living Situation: Other Current Living Situation Comment: [employer] student- lives with roommates Feels Safe at Home: Yes and Declines to Answer Assistive Devices: Glasses Allergies Allergies Allergy/AdvReac Type Severity Reaction Status Date / Time No Known Allergies Allergy Unverified 08/21/21 00:12 Home Meds Previous Rx's Medication Instructions Recorded escitalopram oxalate 10 mg tablet 10 mg PO QAM 30 Days #30 tab 07/23/21 Results & Data (ED) Vital Signs Vital Signs - 24 hr 08/21/21 00:06 08/21/21 00:08 08/21/21 00:43 Pulse Rate 96 H 74 Pulse Rate [Right Finger] 91 H Pulse Rate from SpO2 Sensor Pulse Rhythm Regular Pulse Rhythm [Right Finger] Pulse Strength [Right Finger] Respiratory Rate 25 H 14 19 Respiratory Effort / Characteristics Non-Labored Non-Labored Spontaneous Respiratory Depth Normal Normal Blood Pressure 139/87 Blood Pressure [Left Arm] 132/69 Blood Pressure Mean 104 Blood Pressure Mean [Left Arm] 90 Blood Pressure Position [Left Arm] Pulse Oximetry 100 97 94 Oxygen Delivery Method Nasal Cannula Oxygen Flow Rate 4 Sepsis Recent Fever Within 48 Hours No Sepsis New/Unexplained Change in Mental Status N/A Sepsis Action Taken by Nursing No Action Required End-Tidal CO2 08/21/21 01:14 08/21/21 01:30 08/21/21 02:00 Pulse Rate 84 95 H 99 H Pulse Rate [Right Finger] Pulse Rate from SpO2 Sensor 85 94 H 97 H Pulse Rhythm Pulse Rhythm [Right Finger] Pulse Strength [Right Finger] Respiratory Rate 11 L 21 19 Respiratory Effort / Characteristics Respiratory Depth Blood Pressure 140/75 Blood Pressure [Left Arm] Blood Pressure Mean 96 Blood Pressure Mean [Left Arm] Blood Pressure Position [Left Arm] Pulse Oximetry 100 97 98 Oxygen Delivery Method Nasal Cannula Oxygen Flow Rate 4 Sepsis Recent Fever Within 48 Hours Sepsis New/Unexplained Change in Mental Status Sepsis Action Taken by Nursing End-Tidal CO2 5 5 31 08/21/21 02:06 08/21/21 02:15 08/21/21 02:30 Pulse Rate 104 H 104 H Pulse Rate [Right Finger] 104 H Pulse Rate from SpO2 Sensor 102 H 103 H Pulse Rhythm Pulse Rhythm [Right Finger] Regular Pulse Strength [Right Finger] Normal Respiratory Rate 14 18 18 Respiratory Effort / Characteristics Respiratory Depth Normal Blood Pressure 132/65 Blood Pressure [Left Arm] 139/74 Blood Pressure Mean 87 Blood Pressure Mean [Left Arm] 95 Blood Pressure Position [Left Arm] Lying Pulse Oximetry 97 98 96 Oxygen Delivery Method Nasal Cannula Nasal Cannula Oxygen Flow Rate 4 4 Sepsis Recent Fever Within 48 Hours Sepsis New/Unexplained Change in Mental Status Sepsis Action Taken by Nursing End-Tidal CO2 32 31 Laboratory Data Result diagrams: 08/21/21 07:33 08/21/21 18:36 Lab Results 08/21/21 08/21/21 08/21/21 Range/Units 00:12 00:12 00:12 WBC 10.34 (4.8-10.8) K/uL RBC 5.93 (4.7-6.1) M/uL Hgb 16.4 (14.0-18.0) g/dL Hct 49.0 (42-52) % MCV 82.6 (80-100) fL MCH 27.7 (25-34) pg MCHC 33.5 (32-36) g/dL RDW Std Deviation 41.0 (36.4-46.3) fL RDW Coeff of Jonathan 13.6 (11.5-14.5) % Plt Count 194 (130-400) K/uL MPV 9.6 (7.4-10.4) fL Immature Gran % (Auto) 0.2 % Neut % (Auto) 66.0 % Lymph % (Auto) 25.1 % [place] % (Auto) 7.9 % Eos % (Auto) 0.6 % Baso % (Auto) 0.2 % Neut # (Auto) 6.82 H (1.4-6.5) K/uL Lymph # (Auto) 2.60 (1.2-3.4) K/uL [place] # (Auto) 0.82 H (0.11-0.59) K/uL Eos # (Auto) 0.06 (0-0.5) K/uL Baso # (Auto) 0.02 (0-0.2) K/uL Immature Gran # (Auto) 0.02 (0.00-0.02) K/uL ABG pH (7.35-7.45) ABG pCO2 (35-46) mmHg ABG pO2 (80-95) mmHg ABG HCO3 (19-24) mmol/L ABG O2 Saturation (90-95) % ABG Base Excess (-9-1.8) mEq/L Vel Test (Pos) Barometric Pressure mm/Hg Oxygen Given Sodium 139 (136-145) mmol/L Potassium 3.4 L (3.5-5.1) mmol/L Chloride 107 (98-107) mmol/L Carbon Dioxide 27 (21-32) mmol/L Anion Gap 5.0 (3-11) BUN 11 (7-18) mg/dl Creatinine 0.90 (0.6-1.4) mg/dl Est Cr Clr Drug Dosing 138.7 ml/min Est GFR ( Amer) 142.0 ml/min Est GFR (Non-Af Amer) 122.5 ml/min BUN/Creatinine Ratio 12.0 (10-20) Glucose 117 H (70-99) mg/dl Calcium 9.5 (8.5-10.1) mg/dl Magnesium 2.5 H (1.8-2.4) mg/dl Total Bilirubin 0.6 (0.2-1) mg/dl AST 45 H (15-37) U/L ALT 84 H (12-78) U/L Alkaline Phosphatase 92 (45-117) U/L Total Protein 7.8 (6.4-8.2) gm/dl Albumin 4.4 (3.4-5.0) gm/dl Globulin 3.4 (2.5-4.0) gm/dl Albumin/Globulin Ratio 1.3 (0.9-2) Urine Color Urine Appearance (Clear) Urine pH (4.5-7.5) Ur Specific [place] (1.000-1.030) Urine Protein (Negative) Urine Glucose (UA) (Negative) Urine Ketones (Negative) Urine Blood (Negative) Urine Nitrite (Negative) Urine Bilirubin (Negative) Urine Urobilinogen (Negative) Ur Leukocyte Esterase (Negative) Salicylates < 1.7 L (2.8-20) mg/dl Urine Opiates Screen (Neg) Ur Methadone, Qual (Neg) Acetaminophen < 2 L (10-30) ug/ml Urine Barbiturates (Neg) Ur Phencyclidine (PCP) (Neg) U Amphetamin/Meth Scrn (Neg) MDMA (Ecstasy) Screen (Neg) U Benzodiazepines Scrn (Neg) Ur Cocaine Metabolite (Neg) U Marijuana (THC) Screen (Neg) Ethyl Alcohol mg/dL (0-3) mg/dl 08/21/21 08/21/21 08/21/21 Range/Units 00:31 01:29 01:40 WBC (4.8-10.8) K/uL RBC (4.7-6.1) M/uL Hgb (14.0-18.0) g/dL Hct (42-52) % MCV (80-100) fL MCH (25-34) pg MCHC (32-36) g/dL RDW Std Deviation (36.4-46.3) fL RDW Coeff of Jonathan (11.5-14.5) % Plt Count (130-400) K/uL MPV (7.4-10.4) fL Immature Gran % (Auto) % Neut % (Auto) % Lymph % (Auto) % [place] % (Auto) % Eos % (Auto) % Baso % (Auto) % Neut # (Auto) (1.4-6.5) K/uL Lymph # (Auto) (1.2-3.4) K/uL [place] # (Auto) (0.11-0.59) K/uL Eos # (Auto) (0-0.5) K/uL Baso # (Auto) (0-0.2) K/uL Immature Gran # (Auto) (0.00-0.02) K/uL ABG pH 7.39 (7.35-7.45) ABG pCO2 38 (35-46) mmHg ABG pO2 196 H (80-95) mmHg ABG HCO3 22 (19-24) mmol/L ABG O2 Saturation 99.5 H (90-95) % ABG Base Excess -2.2 (-9-1.8) mEq/L Vel Test POS (Pos) Barometric Pressure 728.4 mm/Hg Oxygen Given 4 L/MIN Sodium (136-145) mmol/L Potassium (3.5-5.1) mmol/L Chloride (98-107) mmol/L Carbon Dioxide (21-32) mmol/L Anion Gap (3-11) BUN (7-18) mg/dl Creatinine (0.6-1.4) mg/dl Est Cr Clr Drug Dosing ml/min Est GFR ( Amer) ml/min Est GFR (Non-Af Amer) ml/min BUN/Creatinine Ratio (10-20) Glucose (70-99) mg/dl Calcium (8.5-10.1) mg/dl Magnesium (1.8-2.4) mg/dl Total Bilirubin (0.2-1) mg/dl AST (15-37) U/L ALT (12-78) U/L Alkaline Phosphatase (45-117) U/L Total Protein (6.4-8.2) gm/dl Albumin (3.4-5.0) gm/dl Globulin (2.5-4.0) gm/dl Albumin/Globulin Ratio (0.9-2) Urine Color Yellow Urine Appearance Clear (Clear) Urine pH 6.5 (4.5-7.5) Ur Specific [place] 1.005 (1.000-1.030) Urine Protein Negative (Negative) Urine Glucose (UA) Negative (Negative) Urine Ketones Negative (Negative) Urine Blood Negative (Negative) Urine Nitrite Negative (Negative) Urine Bilirubin Negative (Negative) Urine Urobilinogen Negative (Negative) Ur Leukocyte Esterase Negative (Negative) Salicylates (2.8-20) mg/dl Urine Opiates Screen (Neg) Ur Methadone, Qual (Neg) Acetaminophen (10-30) ug/ml Urine Barbiturates (Neg) Ur Phencyclidine (PCP) (Neg) U Amphetamin/Meth Scrn (Neg) MDMA (Ecstasy) Screen (Neg) U Benzodiazepines Scrn (Neg) Ur Cocaine Metabolite (Neg) U Marijuana (THC) Screen (Neg) Ethyl Alcohol mg/dL 146.7 H (0-3) mg/dl 08/21/21 Range/Units 01:40 WBC (4.8-10.8) K/uL RBC (4.7-6.1) M/uL Hgb (14.0-18.0) g/dL Hct (42-52) % MCV (80-100) fL MCH (25-34) pg MCHC (32-36) g/dL RDW Std Deviation (36.4-46.3) fL RDW Coeff of Jonathan (11.5-14.5) % Plt Count (130-400) K/uL MPV (7.4-10.4) fL Immature Gran % (Auto) % Neut % (Auto) % Lymph % (Auto) % [place] % (Auto) % Eos % (Auto) % Baso % (Auto) % Neut # (Auto) (1.4-6.5) K/uL Lymph # (Auto) (1.2-3.4) K/uL [place] # (Auto) (0.11-0.59) K/uL Eos # (Auto) (0-0.5) K/uL Baso # (Auto) (0-0.2) K/uL Immature Gran # (Auto) (0.00-0.02) K/uL ABG pH (7.35-7.45) ABG pCO2 (35-46) mmHg ABG pO2 (80-95) mmHg ABG HCO3 (19-24) mmol/L ABG O2 Saturation (90-95) % ABG Base Excess (-9-1.8) mEq/L Vel Test (Pos) Barometric Pressure mm/Hg Oxygen Given Sodium (136-145) mmol/L Potassium (3.5-5.1) mmol/L Chloride (98-107) mmol/L Carbon Dioxide (21-32) mmol/L Anion Gap (3-11) BUN (7-18) mg/dl Creatinine (0.6-1.4) mg/dl Est Cr Clr Drug Dosing ml/min Est GFR ( Amer) ml/min Est GFR (Non-Af Amer) ml/min BUN/Creatinine Ratio (10-20) Glucose (70-99) mg/dl Calcium (8.5-10.1) mg/dl Magnesium (1.8-2.4) mg/dl Total Bilirubin (0.2-1) mg/dl AST (15-37) U/L ALT (12-78) U/L Alkaline Phosphatase (45-117) U/L Total Protein (6.4-8.2) gm/dl Albumin (3.4-5.0) gm/dl Globulin (2.5-4.0) gm/dl Albumin/Globulin Ratio (0.9-2) Urine Color Urine Appearance (Clear) Urine pH (4.5-7.5) Ur Specific [place] (1.000-1.030) Urine Protein (Negative) Urine Glucose (UA) (Negative) Urine Ketones (Negative) Urine Blood (Negative) Urine Nitrite (Negative) Urine Bilirubin (Negative) Urine Urobilinogen (Negative) Ur Leukocyte Esterase (Negative) Salicylates (2.8-20) mg/dl Urine Opiates Screen Neg (Neg) Ur Methadone, Qual Neg (Neg) Acetaminophen (10-30) ug/ml Urine Barbiturates Neg (Neg) Ur Phencyclidine (PCP) Neg (Neg) U Amphetamin/Meth Scrn Neg (Neg) MDMA (Ecstasy) Screen Neg (Neg) U Benzodiazepines Scrn Neg (Neg) Ur Cocaine Metabolite Neg (Neg) U Marijuana (THC) Screen Neg (Neg) Ethyl Alcohol mg/dL (0-3) mg/dl Administered Medications Discontinued Medications Sodium Chloride (Nss) 500 mls @ 999 mls/hr IV .Q31M SARA Stop: 08/21/21 00:45 Last Infusion: 08/21/21 01:14 Dose: 0 mls/hr Documented by: [id number] Admin: 08/21/21 00:18 Dose: 999 mls/hr Documented by: [id number] Lorazepam (Ativan) 1 mg in 2 mls @ 2 mls/min IV NOW STA Stop: 08/21/21 01:04 Last Admin: 08/21/21 01:14 Dose: Not Given Documented by: [id number] Magnesium Sulfate/Dextrose (Magnesium Sulfate / D5w) 1 gm in 100 mls @ 800 mls/hr IV Q7M SARA Stop: 08/21/21 02:59 Last Infusion: 08/21/21 03:25 Dose: 0 mls/hr Documented by: [id number] Admin: 08/21/21 03:14 Dose: 800 mls/hr Documented by: [id number] Infusion: 08/21/21 03:13 Dose: 0 mls/hr Documented by: [id number] Admin: 08/21/21 03:05 Dose: 800 mls/hr Documented by: [id number] Lorazepam (Lorazepam 2 Mg/4 Ml Vial) Confirm Administered Dose 2 mg .ROUTE .STK- MED ONE Stop: 08/21/21 01:05 Last Increment: 08/21/21 01:14 Dose: 1 mg Documented by: [id number] Discharge Plan Visit Data Chief Complaint: Overdose (Intentional) Stated Complaint: MENTAL HEALTH Discharge Problem: Suicide attempt by multiple drug overdose Patient Disposition: Admitted As Inpatient Discharge Problem: Suicide attempt by multiple drug overdose Qualifiers: Encounter type: initial encounter Qualified Code(s): T50.912A - Poisoning by multiple unspecified drugs, medicaments and biological substances, intentional self-harm, initial encounter
[2021-08-22 04:56] LABS: Basophils # (auto) 0.02 K/uL (0-0.2); Basophils % (auto) 0.2 %; Eosinophils # (auto) 0.06 K/uL (0-0.5); Eosinophils % (auto) 0.7 %; Hematocrit (blood only) 48.5 % (42-52); Hemoglobin 15.9 g/dL (14.0-18.0); Immature Granulocytes # (auto) 0.02 K/uL (0.00-0.02); Immature Granulocytes % (auto) 0.2 %; Lymphocytes # (auto) 2.25 K/uL (1.2-3.4); Lymphocytes % (auto) 25.7 %; Mean Corpuscular Hemoglobin 27.6 pg (25-34); Mean Corpuscular Hgb Conc 32.8 g/dL (32-36); Mean Corpuscular Volume 84.1 fL (80-100); Mean Platelet Volume 9.5 fL (7.4-10.4); Monocytes # (auto) 0.84 K/uL (0.11-0.59); Monocytes % (auto) 9.6 %; Neutrophils # (auto) 5.55 K/uL (1.4-6.5); Neutrophils % (auto) 63.6 %; Platelet Count 185 K/uL (130-400); RDW Coefficient of Variation 13.8 % (11.5-14.5); RDW Standard Deviation 42.6 fL (36.4-46.3); Red Blood Count 5.77 M/uL (4.7-6.1); White Blood Count 8.74 K/uL (4.8-10.8)
[2021-08-22 05:24] LABS: BUN Creatinine Ratio 19.4 (10-20); Calcium 9.7 mg/dl (8.5-10.1); Creatinine Clr Calc Pharmacy 138.3 ml/min; Est GFR (African American) 148.3 ml/min; Est GFR (Non-African American) 127.9 ml/min; Potassium 4.1 mmol/L (3.5-5.1)
[2021-08-22 05:31] LABS: Albumin Globulin Ratio 1.2 (0.9-2); Bilirubin,Total 1.9 mg/dl (0.2-1); Globulin 3.4 gm/dl (2.5-4.0); Total Protein 7.4 gm/dl (6.4-8.2)
--- NOTE | 2021-08-22 10:28 | Electrocardiogram Report ---
Test Reason : Blood Pressure : / mmHG Vent. Rate : 093 BPM Atrial Rate : 093 BPM P-R Int : 128 ms QRS Dur : 090 ms QT Int : 380 ms P-R-T Axes : 083 085 077 degrees QTc Int : 472 ms Normal sinus rhythm with sinus arrhythmia Possible Left atrial enlargement Borderline ECG No previous ECGs available Confirmed by Elias Krishna ([id number]) on 08/22/2021 10:27:50 AM Referred By: REFERRED SELF Confirmed By:Devin Krishna
--- NOTE | 2021-08-22 10:30 | Electrocardiogram Report ---
Test Reason : Blood Pressure : / mmHG Vent. Rate : 071 BPM Atrial Rate : 071 BPM P-R Int : 132 ms QRS Dur : 084 ms QT Int : 402 ms P-R-T Axes : 077 080 085 degrees QTc Int : 436 ms Normal sinus rhythm Possible Left atrial enlargement Nonspecific T wave abnormality Abnormal ECG When compared with ECG of 21-AUG-2021 15:30, No significant change was found Confirmed by Elias Krishna ([id number]) on 08/22/2021 10:30:24 AM Referred By: REFERRED SELF Confirmed By:Devin Krishna
--- NOTE | 2021-08-22 10:39 | Electrocardiogram Report ---
Test Reason : Blood Pressure : / mmHG Vent. Rate : 072 BPM Atrial Rate : 072 BPM P-R Int : 128 ms QRS Dur : 094 ms QT Int : 402 ms P-R-T Axes : 078 078 079 degrees QTc Int : 440 ms Normal sinus rhythm Nonspecific T wave abnormality Abnormal ECG When compared with ECG of 21-AUG-2021 21:15, (unconfirmed) No significant change was found Confirmed by Elias Krishna ([id number]) on 08/22/2021 10:39:18 AM Referred By: REFERRED SELF Confirmed By:Devin Krishna
--- NOTE | 2021-08-22 11:02 | Hospitalist Progress Note ---
Date of Service August 22, 2021 Assessment & Plan (1) Polysubstance overdose: Plan: Jorge is a 21 yo male with a pmh of MDD, DORITA, and suicidal ideation who was admitted after a polysubstance overdose. 1) Polypharmacy overdose - Pt consumed 30 tablets (10mg) of Lexapro; unknown quantity of benadryl and ibuprofen; ETOH - UDS: EtOH 146.7; acetaminophen < 2; salicylates < 1.7 - Poison Control Contacted on Arrival: If QRS >125 start bicarbonate gtt and monitor electrolytes. Keep magnesium > 2. - QRS most recently 94 ms - Most Recent Mg2+ is 3.2 - Currently being managed by ICU. - Initial concerns for serotonin syndrome on admission given mild tachycardia and QTc prolongation; however, there was hyporeflexia, reduced bowel sounds, and lack of diaphoresis which lowers this on the differential. - Anticipate condition improving; lorazepam 1mg PRN for agitation - Likely downgrade tomorrow 2) Suicide Attempt: - inpatient psychiatric consult placed, appreciate consultation - one to one observation 3) QTc prolongation: - QTc (0.456) : suspect secondary to SSRI overdose. Hold SSRI. Monitor on telemetry. - repeat EKG in AM - Avoid Zofran and other QT prolonging agents. 4) Elevated Transaminases - AST: 45; ALT: 84 - likely 2ndary to polysubstance overdose as seen above - Recheck CMP in AM 5) MDD - holding Lexapro until cleared medically from risk of serotonin syndrome. Consulted psychiatry. 6) DORITA - holding Lexapro until cleared medically from risk of serotonin syndrome. Will follow psychiatry recommendations. Dispo: ICU DVT prophylaxis: SCDs Diet: Regular Admission and Anticipated Discharge Date Admission Date: August 21, 2021 Subjective Patient seen at bedside this morning. Patient is still very fatigued. Patient understands why he is here, remembers his suicide attempt, and reports that he does not have regret about attempting, but does regret that the suicide attempt failed. He states multiple times throughout the interview that he does not care about his life and does not want to be placed in an inpatient psychiatric facility. He does report that his family is very close to him and that would be the only thing that will make it worth getting any sort of treatment. He did state at the end of the interview, however, that he has made up his mind that he does not want to live anymore. Patient did have a conversation with psychiatric consultation yesterday that he does not remember. Physically patient states that he feels okay and is denying any nausea, vomiting, shortness of breath, or chest pain. He reports that he has had a couple bowel movements and is urinating without difficulty. Patient has no other complaints at this time. Physical Exam Constitutional: well developed and well nourished; no acute distress Eyes: + anisocoria Neck: normal visual inspection and trachea midline Respiratory: normal respiratory effort, lungs clear to auscultation Cardiovascular: RRR, no murmur, no edema Gastrointestinal (Abdomen): normal bowel sounds, soft, nontender, no hepatosplenomegaly Skin: no rashes, warm and dry Neurologic: patellar DTR's 2+ bilat, sensation intact CN's II-XI intact bilaterally and moves all extremities Motor/Sensory: + tremor Cranial Nerves: tongue midline Psychiatric: Orientation: alert and oriented x 3 Eye Contact: + poor eye contact Affect: + depressed affect Mood: + depressed mood Thought Content: + hopelessness Results & Data Results & Data ([facility]) Vital Signs (Past 12 Hours) Vital Signs Temp Pulse Resp BP Pulse Ox 08/22/21 10:00 78 13 129/72 91 08/22/21 09:01 77 14 92 08/22/21 08:00 74 14 94 08/22/21 07:00 36.9 C 67 14 93 08/22/21 06:00 74 19 121/68 94 08/22/21 05:00 37 C 67 15 122/71 94 08/22/21 04:00 72 14 118/66 93 08/22/21 03:30 71 14 93 08/22/21 03:15 71 13 94 08/22/21 02:00 72 15 123/70 95 08/22/21 01:00 67 14 118/67 94 08/22/21 00:00 71 13 124/72 93 08/21/21 23:00 37.4 C 71 14 123/71 94 Resident Activity Tracking Resident Involvement: Resident Care Provided Care Provided: Adult Hospital Medicine
--- NOTE | 2021-08-22 11:37 | Psychiatric Progress Note ---
Date of Service August 22, 2021 Impression / Recommendations Impression Willy is a 21 yo man and [employer] student with a history of MDD, DORITA and SI with recent inpatient psychiatric hospitalization at [facility]. He is well known to me as I treated him during his recent inpatient psychiatry admission. Diagnostically consistent with recurrent MDD with suicide attempt in the context of recent psychosocial stressor of romantic breakup which triggered previous SI and depressive episodes. He is at high acute risk of self-harm given suicide attempt with lethal potential, non-help seeking, MDD, remains regretful about surviving attempt and recent breakup. Once medically stable he will require psychiatric hospitalization for diagnostic clarification, safety and stabilization, medication management and development of further coping skills. 08/22/21: continues to feel very depressed and remains regretful of having survived the attempt. Continues to need inpt psych treatment once medically stable. Psych liason will reach out to his parents for collateral and to provide updates. (1) Suicide attempt by drug overdose: (2) MDD (major depressive disorder), recurrent episode: (3) DORITA (generalized anxiety disorder): -Continue 1-on-1 observation for safety -May not leave AMA or without clearance from psychiatry, he will require inpatient psychiatric treatment on 201 or 302 status once medically cleared -Hold lexapro in context of overdose and QTc prolongation -Psych liason will contact his parents Risk Factors Assessment Do You Have Access To A Gun?: No Mental Health Diagnoses: Yes Previous Attempt; Highly Lethal: Yes Hopelessness: Yes Protective Factors Assessment Employed: Yes Stable Relationships: Yes Supportive Family: Yes Good Rapport with Provider: Yes Interval History Identifying Information Jorge Gallardo is a 21 yo man and [employer] student with a history of MDD, DORITA and SI with recent psychiatric hospitalization ([facility] 07/19/21 - 07/23/21) was admitted medically after a suicide attempt via ingestion of escitalopram (~30 tablets of 10mg strength), alcohol and Benadryl (~10 tablets, unknown strength). Psychiatry was consulted for risk assessment, management and disposition recommendations. Chief Complaint "I'm depressed". Review of Systems Notes He denies any pain or discomfort, Continues to sleep a lot due to feeling tired. Subjective Subjective Patient was seen & assessed and interval progress reviewed. Qtc appears to be normalizing 440 this AM. Willy was more alert today and able to provide a few more details about recent events. He continues to feel very depressed and regrets having survived the attempt. He visited with his dad and brother yesterday. He remains agreeable with plan for inpatient treatment once medically cleared and signed ROIs for his parents. Reported that after his inpatient discharge last month his mood initially had improved but then he had the breakup two weeks ago. His mood improved a bit after being home for Thansgiving but then worsened when he returned to school due to school stress and the recent breakup. On the evening of his suicide attempt he had been drinking alcohol, as this helped numb his depression symptoms, and then his ex-girlfriend called and was upset that he's been avoiding her due to the pain from the breakup (they share almost all of the same classes and see each other in [employer] for practices). This caused him to have sudden intensification of his SI and then he called his mom and then hang up with her and then made the attempt. Physical Exam Psychiatric Orientation: alert and oriented x 3 Apperance: appropriately dressed and appropriately groomed Eye Contact: + poor eye contact (eyes mostly closed) Motor Behavior: no abnormal motor movements Speech: normal rate/rhythm/volume of speech Affect: + depressed affect Mood: + depressed mood Thought Process: goal directed thought process Thought Content: reality based without delusions Suicidal Thoughts: + reports suicidal thoughts (regrets that he is alive ) Homicidal Thoughts: denies homicidal thoughts Hallucinations: no auditory hallucinations and no visual hallucinations Cognition: recent memory grossly intact, remote memory grossly intact, attention grossly intact and language grossly intact Estimated Intelligence: consistent with education level Insight: + fair insight Judgement: + impaired judgement Vital Signs (Past 24 Hours) Last Vital Signs Temp 36.9 C 08/22/21 07:00 Pulse 78 08/22/21 10:00 Resp 13 08/22/21 10:00 BP 129/72 08/22/21 10:00 Pulse Ox 91 08/22/21 10:00 Results & Data ([facility]) Laboratory Results Laboratory Results - last 24 hr 08/21/21 08/21/21 08/21/21 11:29 12:46 18:02 WBC RBC Hgb Hct MCV MCH MCHC RDW Std Deviation RDW Coeff of Jonathan Plt Count MPV Immature Gran % (Auto) Neut % (Auto) Lymph % (Auto) [place] % (Auto) Eos % (Auto) Baso % (Auto) Neut # (Auto) Lymph # (Auto) [place] # (Auto) Eos # (Auto) Baso # (Auto) Immature Gran # (Auto) Sodium 140 Potassium 4.0 Chloride 110 H Carbon Dioxide 25 Anion Gap 5.0 BUN 7 Creatinine 0.76 Est Cr Clr Drug Dosing 147.4 Est GFR ( Amer) > 150.0 Est GFR (Non-Af Amer) 131.3 BUN/Creatinine Ratio 8.6 L Glucose 99 POC Glucose 90 89 Calcium 9.1 Magnesium Total Bilirubin AST ALT Alkaline Phosphatase Total Creatine Kinase Total Protein Albumin Globulin Albumin/Globulin Ratio 08/21/21 08/21/21 08/22/21 18:36 23:51 04:07 WBC 8.74 RBC 5.77 Hgb 15.9 Hct 48.5 MCV 84.1 MCH 27.6 MCHC 32.8 RDW Std Deviation 42.6 RDW Coeff of Jonathan 13.8 Plt Count 185 MPV 9.5 Immature Gran % (Auto) 0.2 Neut % (Auto) 63.6 Lymph % (Auto) 25.7 [place] % (Auto) 9.6 Eos % (Auto) 0.7 Baso % (Auto) 0.2 Neut # (Auto) 5.55 Lymph # (Auto) 2.25 [place] # (Auto) 0.84 H Eos # (Auto) 0.06 Baso # (Auto) 0.02 Immature Gran # (Auto) 0.02 Sodium 139 Potassium 4.0 Chloride 108 H Carbon Dioxide 28 Anion Gap 3.0 BUN 10 Creatinine 0.80 Est Cr Clr Drug Dosing 140.0 Est GFR ( Amer) 149.0 Est GFR (Non-Af Amer) 128.6 BUN/Creatinine Ratio 12.3 Glucose 95 POC Glucose 80 Calcium 9.3 Magnesium 2.5 H Total Bilirubin AST ALT Alkaline Phosphatase Total Creatine Kinase 213 Total Protein Albumin Globulin Albumin/Globulin Ratio 08/22/21 04:07 WBC RBC Hgb Hct MCV MCH MCHC RDW Std Deviation RDW Coeff of Jonathan Plt Count MPV Immature Gran % (Auto) Neut % (Auto) Lymph % (Auto) [place] % (Auto) Eos % (Auto) Baso % (Auto) Neut # (Auto) Lymph # (Auto) [place] # (Auto) Eos # (Auto) Baso # (Auto) Immature Gran # (Auto) Sodium 137 Potassium 4.1 Chloride 105 Carbon Dioxide 25 Anion Gap 7.0 BUN 16 D Creatinine 0.81 Est Cr Clr Drug Dosing 138.3 Est GFR ( Amer) 148.3 Est GFR (Non-Af Amer) 127.9 BUN/Creatinine Ratio 19.4 Glucose 85 POC Glucose Calcium 9.7 Magnesium Total Bilirubin 1.9 H D AST 24 ALT 62 Alkaline Phosphatase 99 Total Creatine Kinase Total Protein 7.4 Albumin 4.0 Globulin 3.4 Albumin/Globulin Ratio 1.2 Current Inpatient Medications Current Inpatient Medications: Current Inpatient Medications Lorazepam (Ativan) 1 mg in 2 mls @ 2 mls/min IV Q4H PRN PRN Reason: agitation Stop: 09/20/21 04:47 Miscellaneous (Icu Protocol For Hyperglycemia) 1 ea N/A PRN PRN; Protocol PRN Reason: Hyperglycemia Protocol Stop: 08/23/21 04:36
--- NOTE | 2021-08-22 13:12 | Medical Student Progress Note ---
Date of Service August 22, 2021 Assessment & Plan (1) Polysubstance overdose: Plan: Jorge is a 21 yo male with a pmh of MDD, DORITA, and suicidal ideation who was admitted after a polysubstance overdose. - Pt consumed 30 tablets (10mg) of Lexapro; 10 tablets of benadryl and an unknown amount of ibuprofen; ETOH - UDS: EtOH 146.7; acetaminophen < 2; salicylates < 1.7 - Poison Control Contacted on Arrival: If QRS >125 start bicarbonate gtt and monitor electrolytes. Keep magnesium > 2. - QRS most recently 94 ms - Most Recent Mg2+ is 2.5 -had concerns for serotonin syndrome on admission given mild tachycardia and QTc prolongation; however, there was hyporeflexia, reduced bowel sounds, and lack of diaphoresis yesterday. See physical exam above. - lorazepam 1mg PRN for agitation - condition improving - Is being downgraded to med/surg with telemetry today. 2) Suicide Attempt: - inpatient psychiatric consult placed, appreciate recs - one to one observation 3) QTc prolongation: - QTc now 440 ms - continue monitoring with telemetry - recheck EKG in AM 4) Elevated Transaminases - AST: 45; ALT: 84 on 08-21-2021 but now within normal limits, resolved - was likely secondary to polysubstance overdose as seen above 5) MDD - holding Lexapro until cleared medically from adverse effects of polysubstance overdose. Consulted psychiatry. - psychiatry recommends inpatient psychiatric stallings 6) DORITA: - see MDD above Admission and Anticipated Discharge Date Admission Date: August 21, 2021 Supervising Attestation Patient seen and examined with PGY 1 Dr. Arellano. Agree with history, exam findings, assessment and plan of care as outlined. In brief, Jorge is 21 year old male admitted following suicide attempt via multiple drug overdose (bottle of motrin, escitalopram, alcohol, and benadryl). Today, he is seen at the bedside. His family is not present. He reports that he is disappointed that his suicide attempt did not work. He reports that his main support system includes his mother, father and his older brother. He is from the [facility]. While he does have some support system in his family, he does not feel that that is enough for him to go on living. Vital signs and nursing notes reviewed. Sleepy but arousable. Conversational. Heart with regular rate and rhythm. No murmurs, rubs or gallops. +2 DTR Patellar and Achilles bilaterally. Hands are tremulous. Still endorsing suicidal ideation. Blunted affect. Labs and imaging reviewed. 1. Polysubstance overdose. QTC greater than 500ms and given IV mag. EOTH level on admission 146. Still with mild signs of serotonin syndrome. 2. Suicide attempt with suicidal ideation still. Appreciate psychiatry recommendations. Will need to find another inpatient psychiatric facility. 3. MDD and DORITA. Holding home Lexapro. 4. Elevated liver tests. Resolved. ?secondary to recent alcohol and other medications he took. Dispo: pending resolution of excess serotonin symptoms. Subjective Today, the patient feels "okay" and understands he will likely be admitted for inpatient psychiatric treatment. He is having BMs and micturition normally. He has no fever, headache, diaphoresis, chest pain, palpitations, diarrhea, vomiting, abdominal pain, or muscle spasms. Review of Systems Review of Systems: as per HPI Physical Exam Constitutional: WD/WN, vitals as above average body habitus Eyes: no conjunctival abnormality, no scleral abnormality and no EOM movement deficit ENMT: external ear and nose normal, oropharynx normal Neck: trachea midline Respiratory: normal respiratory effort, lungs clear to auscultation Cardiovascular: RRR, no murmur, no edema Musculoskeletal: no cyanosis or clubbing, extremities motor strength 5/5 Skin: no rashes, warm and dry Neurologic: CN's II-XI intact bilaterally Speech / Cognition: + abnormal speech Motor/Sensory: + tremor (postural); no asterixis and no sensory deficit Cranial Nerves: PERRL, normal accommodation, EOM intact bilaterally, normal facial strength, tongue midline, normal hearing, able to rotate head bilaterally, able to elevate shoulders bilaterally and no nystagmus (positive for tounge fasciculations and saccades) Coordination: normal [id number] test and normal [id number] test Strength 5/5 in all extremities. DTR's normal except for 3+ patellar reflex b/l and 3 beats of clonus in ankle b/l. Psychiatric: Orientation: oriented x 3; + not alert Eye Contact: + poor eye contact Motor Behavior: + psychomotor retardation Affect: + depressed affect Cognition: recent memory grossly intact, remote memory grossly intact, attention grossly intact and language grossly intact Slowed speech Results & Data ([facility]) Vital Signs (Past 12 Hours) Vital Signs Temp Pulse Resp BP Pulse Ox 08/22/21 10:00 78 13 129/72 91 08/22/21 09:01 77 14 92 08/22/21 08:00 74 14 94 08/22/21 07:00 36.9 C 67 14 93 08/22/21 06:00 74 19 121/68 94 08/22/21 05:00 37 C 67 15 122/71 94 08/22/21 04:00 72 14 118/66 93 08/22/21 03:30 71 14 93 08/22/21 03:15 71 13 94 08/22/21 02:00 72 15 123/70 95 08/22/21 01:00 67 14 118/67 94
--- NOTE | 2021-08-23 07:18 | Hospitalist Progress Note ---
Date of Service August 23, 2021 Assessment & Plan (1) Polysubstance overdose: Plan: Jorge is a 21 yo male with a pmh of MDD, DORITA, and suicidal ideation who was admitted after a polysubstance overdose. 1) Polysubstance overdose: - Pt consumed 30 tablets (10mg) of Lexapro, 10 tablets of benadryl, an unknown amount of ibuprofen, and ETOH - UDS: EtOH 146.7; acetaminophen < 2; salicylates < 1.7 - Poison Control Contacted on Arrival: If QRS >125 start bicarbonate gtt and monitor electrolytes. Keep magnesium > 2. - QRS (08/23) 88 ms - Mg (08/21): 2.5 - still with some mild serotonin symptoms. - lorazepam 1mg PRN for agitation - condition improving - currently med surg with tele 2) Suicide Attempt: - inpatient psychiatric consult: will require inpatient psychiatric treatment on 201 or 302 status once medically cleared - one to one observation 3) QTc prolongation, resolved - QTc (08/23): 434 - monitor w/ tele 4) MDD - holding Lexapro until cleared medically from risk of serotonin syndrome. - Psych consult: recommends inpatient psychiatric stallings 5) DORITA: - see MDD above DVT ppx: SCD FEN/GI: Regular Code Status: Full Dispo: med/surg Admission and Anticipated Discharge Date Admission Date: August 21, 2021 Supervising Physician Co-Signing Physician Notes Patient seen and examined with PGY 1 Dr. Noyola. Agree with history, exam findings, assessment and plan of care as outlined. In brief, Jorge is 21 year old male admitted following suicide attempt via multiple drug overdose (bottle of motrin, escitalopram, alcohol, and benadryl). Today, he is seen at the bedside. His father is present. He reports that he does not want to go to an inpatient psychiatric facility. He wants to go home. He does not want to go to an inpatient psychiatric program because it didnt work last time. Ambivalent regarding involuntary psychiatric admission. Vital signs and nursing notes reviewed. Sleepy but arousable. Conversational. Heart with regular rate and rhythm. No murmurs, rubs or gallops. +1 DTR Patellar and Achilles bilaterally. Hands are tremulous. Still endorsing suicidal ideation. Tearful. Labs and imaging reviewed. 1. Polysubstance overdose. QTC greater than 500ms and given IV mag. EOTH level on admission 146. Still with mild signs of serotonin syndrome. 2. Suicide attempt with suicidal ideation still. Appreciate psychiatry recommendations. Will need to find another inpatient psychiatric facility. 3. MDD and DORITA. Holding home Lexapro for now. 4. Elevated liver tests. Resolved. Dispo: pending resolution of excess serotonin symptoms. Subjective Seen at bedside with father present. Patient was not very talkative. Said very few words and shook his head to yes or no questions. Became tearful when talking about the thought of inpatient psych. Father encouraging of idea. Pt remained cooperative during physical exam. Review of Systems Review of Systems: Constitutional: denies fevers CV: denies chest pain, palpitations Resp: denies shortness of breath, cough Physical Exam Constitutional: well developed, well nourished and + lethargic; no acute distress Eyes: + anicteric sclerae; no nystagmus PERRL Neck: trachea midline, no thyromegaly normal visual inspection and trachea midline Respiratory: normal respiratory effort, lungs clear to auscultation Cardiovascular: RRR, no murmur, no edema Gastrointestinal (Abdomen): normal bowel sounds, soft, nontender, no hepatosplenomegaly Skin: no rashes, warm and dry Neurologic: patellar DTR's 2+ bilat, sensation intact moves all extremities Motor/Sensory: + tremor (mild) Cranial Nerves: tongue midline mild ankle clonus, improving Psychiatric: Orientation: alert and oriented x 3 Eye Contact: + poor eye contact Affect: + depressed affect Mood: + depressed mood Thought Content: + hopelessness Results & Data Results & Data ([facility]) Vital Signs (Past 12 Hours) Vital Signs Temp Pulse Resp BP Pulse Ox 08/23/21 03:13 36.5 C 08/23/21 03:00 70 16 133/64 95 08/23/21 02:00 70 18 127/64 94 08/23/21 01:00 69 16 95 08/23/21 00:00 73 16 95 08/22/21 23:47 36.9 C 08/22/21 23:00 73 16 96 08/22/21 22:00 76 15 125/60 95 08/22/21 21:00 72 14 95 08/22/21 20:00 77 16 95 Resident Activity Tracking Resident Involvement: Resident Care Provided Care Provided: Adult Hospital Medicine
[2021-08-23 07:59] LABS: Alanine Aminotransferase 47 (12-78); Albumin Level 4.1 gm/dl (3.4-5.0); Aspartate Aminotransferase 13 U/L (15-37); BUN Creatinine Ratio 28.3 (10-20); Blood Urea Nitrogen 21 mg/dl (7-18); Calcium 9.8 mg/dl (8.5-10.1); Carbon Dioxide 24 mmol/L (21-32); Chloride 103 mmol/L (98-107); Creatinine Clr Calc Pharmacy 149.3 ml/min; Est GFR (African American) > 150.0 ml/min; Est GFR (Non-African American) 133.5 ml/min; Glucose 82 mg/dl (70-99); Potassium 4.2 mmol/L (3.5-5.1); Sodium 137 mmol/L (136-145)
[2021-08-23 08:02] LABS: Albumin Globulin Ratio 1.2 (0.9-2); Alkaline Phosphatase 100 U/L (45-117); Bilirubin,Total 2.1 mg/dl (0.2-1); Globulin 3.5 gm/dl (2.5-4.0); Total Protein 7.6 gm/dl (6.4-8.2)
--- NOTE | 2021-08-23 10:40 | Communication Note ---
Date of Service: August 23, 2021 case reviewed as change in responsibility for psychiatric consult service. Liaison working with family to identify psychiatry units closer to home as iveth henry has not been doing well at [facility] and it's essentially holiday break. He was sleeping this am so unable to assess appropriateness to sign 201 and is not yet medically cleared.
--- NOTE | 2021-08-23 12:26 | Electrocardiogram Report ---
Test Reason : Blood Pressure : / mmHG Vent. Rate : 070 BPM Atrial Rate : 070 BPM P-R Int : 122 ms QRS Dur : 088 ms QT Int : 402 ms P-R-T Axes : 074 074 077 degrees QTc Int : 434 ms Normal sinus rhythm with short MO Left atrial enlargement ST elevation, consider early repolarization, pericarditis, or injury Abnormal ECG When compared with ECG of 22-AUG-2021 02:56, No significant change was found Confirmed by Wade Lofton ([id number]) on 08/23/2021 12:26:28 PM Referred By: REFERRED SELF Confirmed By:Wade Lofton
[2021-08-24 07:11] LABS: Basophils # (auto) 0.03 K/uL (0-0.2); Basophils % (auto) 0.4 %; Eosinophils # (auto) 0.11 K/uL (0-0.5); Eosinophils % (auto) 1.4 %; Immature Granulocytes # (auto) 0.03 K/uL (0.00-0.02); Immature Granulocytes % (auto) 0.4 %; Lymphocytes # (auto) 2.35 K/uL (1.2-3.4); Lymphocytes % (auto) 29.5 %; Mean Corpuscular Hemoglobin 27.6 pg (25-34); Mean Corpuscular Hgb Conc 33.3 g/dL (32-36); Mean Corpuscular Volume 82.8 fL (80-100); Mean Platelet Volume 9.9 fL (7.4-10.4); Monocytes # (auto) 0.84 K/uL (0.11-0.59); Monocytes % (auto) 10.6 %; Neutrophils % (auto) 57.7 %; Platelet Count 187 K/uL (130-400); RDW Coefficient of Variation 13.5 % (11.5-14.5); RDW Standard Deviation 40.1 fL (36.4-46.3); Red Blood Count 6.16 M/uL (4.7-6.1); White Blood Count 7.96 K/uL (4.8-10.8)
[2021-08-24 07:45] LABS: Alanine Aminotransferase 39 (12-78); Albumin Level 3.9 gm/dl (3.4-5.0); Aspartate Aminotransferase 11 U/L (15-37); BUN Creatinine Ratio 27.8 (10-20); Blood Urea Nitrogen 21 mg/dl (7-18); Calcium 9.5 mg/dl (8.5-10.1); Carbon Dioxide 26 mmol/L (21-32); Chloride 106 mmol/L (98-107); Creatinine Clr Calc Pharmacy 143.4 ml/min; Est GFR (African American) > 150.0 ml/min; Est GFR (Non-African American) 131.3 ml/min; Glucose 90 mg/dl (70-99); Potassium 4.1 mmol/L (3.5-5.1); Sodium 140 mmol/L (136-145)
[2021-08-24 07:53] LABS: Albumin Globulin Ratio 1.1 (0.9-2); Alkaline Phosphatase 94 U/L (45-117); Bilirubin,Total 1.5 mg/dl (0.2-1); Globulin 3.4 gm/dl (2.5-4.0); Total Protein 7.3 gm/dl (6.4-8.2)
--- NOTE | 2021-08-24 09:36 | Hospitalist Progress Note ---
Date of Service August 24, 2021 Assessment & Plan (1) Polysubstance overdose: Plan: Jorge is a 21 yo male with a pmh of MDD, DORITA, and suicidal ideation who was admitted after a polysubstance overdose. 1) Polysubstance overdose: - Pt consumed 30 tablets (10mg) of Lexapro, 10 tablets of benadryl, an unknown amount of ibuprofen, and ETOH - UDS: EtOH 146.7; acetaminophen < 2; salicylates < 1.7 - Poison Control Contacted on Arrival: If QRS >125 start bicarbonate gtt and monitor electrolytes. Keep magnesium > 2. - QRS (08/23) 88 ms - Mg (08/21): 2.5 -had concerns for serotonin syndrome on admission given mild tachycardia and QTc prolongation; however, there was hyporeflexia, reduced bowel sounds, and lack of diaphoresis on past exams. - lorazepam 1mg PRN for agitation - condition improving - in ICE but being downgraded to med/surg with tele 2) Suicide Attempt: - inpatient psychiatric consult: will require inpatient psychiatric treatment on 201 or 302 status once medically cleared - one to one observation 3) QTc prolongation, resolved - QTc (08/23): 434 - monitor w/ tele 4) MDD - holding Lexapro until cleared medically from risk of serotonin syndrome. - Psych consult: recommends inpatient psychiatric stallings 5) DORITA: - see MDD above DVT ppx: SCD FEN/GI: Regular Code Status: Full Dispo: med/surg Admission and Anticipated Discharge Date Admission Date: August 21, 2021 Subjective Seen at bedside with father present. Patient was not very talkative. Said very few words and shook his head to yes or no questions. Became tearful when talking about the thought of inpatient psych. Father encouraging of idea. Pt remained cooperative during physical exam. New subjective.... Review of Systems Review of Systems: Constitutional: denies fevers CV: denies chest pain, palpitations Resp: denies shortness of breath, cough Physical Exam Constitutional: well developed, well nourished and + lethargic; no acute distress Eyes: + anicteric sclerae; no nystagmus Neck: trachea midline, no thyromegaly normal visual inspection and trachea midline Respiratory: normal respiratory effort, lungs clear to auscultation Cardiovascular: RRR, no murmur, no edema Gastrointestinal (Abdomen): normal bowel sounds, soft, nontender, no hepatosplenomegaly Skin: no rashes, warm and dry Neurologic: patellar DTR's 2+ bilat, sensation intact moves all extremities Motor/Sensory: + tremor (mild) Cranial Nerves: tongue midline Psychiatric: Orientation: alert and oriented x 3 Eye Contact: + poor eye contact Affect: + depressed affect Mood: + depressed mood Thought Content: + hopelessness Results & Data Results & Data ([facility]) Vital Signs (Past 12 Hours) Vital Signs Temp Pulse Pulse Resp BP Pulse Ox 08/24/21 04:10 36.5 C 68 16 115/64 96 08/24/21 00:00 37.1 C 75 75 14 109/67 94
--- NOTE | 2021-08-24 12:52 | Psychiatric Progress Note ---
Date of Service August 24, 2021 Impression / Recommendations Asmita Aguilera is a 21 yo man and [employer] student with a history of MDD, DORITA and SI with recent inpatient psychiatric hospitalization at [facility]. He is at high acute risk of self-harm given suicide attempt with lethal potential, non-help seeking, MDD, remains regretful about surviving attempt and recent breakup. Once medically stable he will require psychiatric hospitalization for diagnostic clarification, safety and stabilization, medication management and development of further coping skills. 08/24/21: Agree with Dr. Peng's assessment re: need for inpatient hospitalization when medically cleared. Should not be allowed to leave the hospital AMA. Patient remains agreeable to 201 when medically cleared. Liaison has been working with family on identifying preferred facilities. (1) Suicide attempt by drug overdose: (2) MDD (major depressive disorder), recurrent episode: (3) DORITA (generalized anxiety disorder): -Continue 1-on-1 observation for safety pending discharge to an accepting psychiatric facility. See impression. Risk Factors Assessment Do You Have Access To A Gun?: No Mental Health Diagnoses: Yes Previous Attempt; Highly Lethal: Yes Hopelessness: Yes Protective Factors Assessment Employed: Yes Stable Relationships: Yes Supportive Family: Yes Good Rapport with Provider: Yes Interval History Identifying Information Jorge Gallardo is a 21 yo man and [employer] student with a history of MDD, DORITA and SI with recent psychiatric hospitalization ([facility] 07/19/21 - 07/23/21) was admitted medically after a suicide attempt via ingestion of escitalopram (~30 tablets of 10mg strength), alcohol and Benadryl (~10 tablets, unknown strength). Chief Complaint "yeah, alot to think about, pretty overwhelming right now". Review of Systems Notes now taking PO, feels hungry, anxious but not jitteriness, denies MOSS or GI Subjective Subjective Patient was seen & assessed and interval progress reviewed with liaison, interim care reviewed. Initial consult by Dr. Peng. States that he was pretty numb following the OD until last night when it was like a "fog lifted" which is "good but not good" as now more aware of/processing the attempt and thinking about school. He appreciates support of family and continues to hope he can be placed in a psychiatric facility closer to home. Physical Exam Psychiatric Orientation: alert Apperance: appropriately groomed Eye Contact: + fair eye contact Motor Behavior: no abnormal motor movements Speech: normal rate/rhythm/volume of speech Affect: + depressed affect Mood: + depressed mood Thought Process: goal directed thought process Thought Content: reality based without delusions Suicidal Thoughts: + reports suicidal thoughts (denies intent in hospital, just not sure how to "deal with everything") Homicidal Thoughts: denies homicidal thoughts Hallucinations: no auditory hallucinations and no visual hallucinations Cognition: recent memory grossly intact, remote memory grossly intact, attention grossly intact and language grossly intact Estimated Intelligence: consistent with education level Insight: + fair insight Judgement: + limited judgement Vital Signs (Past 24 Hours) Last Vital Signs Temp 36.7 C 08/24/21 11:28 Pulse 79 08/24/21 11:28 Resp 20 08/24/21 11:28 BP 108/67 08/24/21 11:28 Pulse Ox 97 08/24/21 11:28 Results & Data ([facility]) Laboratory Results Laboratory Results - last 24 hr 08/24/21 08/24/21 06:36 06:36 WBC 7.96 RBC 6.16 H Hgb 17.0 Hct 51.0 MCV 82.8 MCH 27.6 MCHC 33.3 RDW Std Deviation 40.1 RDW Coeff of Jonathan 13.5 Plt Count 187 MPV 9.9 Immature Gran % (Auto) 0.4 Neut % (Auto) 57.7 Lymph % (Auto) 29.5 [place] % (Auto) 10.6 Eos % (Auto) 1.4 Baso % (Auto) 0.4 Neut # (Auto) 4.60 Lymph # (Auto) 2.35 [place] # (Auto) 0.84 H Eos # (Auto) 0.11 Baso # (Auto) 0.03 Immature Gran # (Auto) 0.03 H Sodium 140 Potassium 4.1 Chloride 106 Carbon Dioxide 26 Anion Gap 8.0 BUN 21 H Creatinine 0.76 Est Cr Clr Drug Dosing 143.4 Est GFR ( Amer) > 150.0 Est GFR (Non-Af Amer) 131.3 BUN/Creatinine Ratio 27.8 H Glucose 90 Calcium 9.5 Total Bilirubin 1.5 H AST 11 L ALT 39 Alkaline Phosphatase 94 Total Protein 7.3 Albumin 3.9 Globulin 3.4 Albumin/Globulin Ratio 1.1 Current Inpatient Medications Current Inpatient Medications: Current Inpatient Medications Lorazepam (Ativan) 1 mg in 2 mls @ 2 mls/min IV Q4H PRN PRN Reason: agitation Stop: 09/20/21 04:47
--- NOTE | 2021-08-24 16:49 | Hospitalist Progress Note ---
Date of Service August 24, 2021 Assessment & Plan (1) Polysubstance overdose: Plan: Jorge is a 21 yo male with a pmh of MDD, DORITA, and suicidal ideation who was admitted after a polysubstance overdose. 1) Polysubstance overdose: - Pt consumed 30 tablets (10mg) of Lexapro, 10 tablets of benadryl, an unknown amount of ibuprofen, and ETOH - UDS: EtOH 146.7; acetaminophen < 2; salicylates < 1.7 - Poison Control Contacted on Arrival: If QRS >125 start bicarbonate gtt and monitor electrolytes. Keep magnesium > 2. - QRS (08/23) 88 ms - Mg (08/21): 2.5 - serotonin syndrome and withdrawal symptoms have resolved - currently med surg with tele 2) Suicide Attempt: - inpatient psychiatric consult: likely voluntary inpatient pyschiatric admission. Appreciate psych liason's assistance with finding a facility closer to patient's home - one to one observation 3) QTc prolongation, resolved - QTc (08/23): 434 - monitor w/ tele 4) MDD - holding Lexapro for now - Psych consult: recommends inpatient psychiatric program when medically stable. 5) DORITA: - see MDD above DVT ppx: SCD FEN/GI: Regular Code Status: Full Dispo: Medically stable for transfer to inpatient psychiatric program. Admission and Anticipated Discharge Date Admission Date: August 21, 2021 Subjective Feels more awake today, which he feels is both good and bad. Now he is feeling a lot more of his emotions, processing his suicide attempt. Today, he does feel that he would benefit from an inpatient psychiatric stay and is willing to do that voluntarily. Was able to eat lunch without any issues. No nausea. Physical Exam Constitutional: WD/WN, vitals as above Eyes: PERRL, conjunctivae normal, anicteric sclerae Respiratory: normal respiratory effort, lungs clear to auscultation Cardiovascular: RRR, no murmur, no edema Gastrointestinal (Abdomen): normal bowel sounds, soft, nontender, no hepatosplenomegaly Neurologic: deep tendon reflexes 2+ bilaterally, moves all extremities and awake Motor/Sensory: no tremor, normal movement and no fasciculations Psychiatric: Orientation: alert, oriented x 3 and cooperative Eye Contact: good eye contact Affect: + depressed affect Mood: + depressed mood Results & Data Results & Data ([facility]) Vital Signs (Past 12 Hours) Vital Signs Temp Pulse Pulse Resp BP Pulse Ox 08/24/21 11:28 36.7 C 79 20 108/67 97 08/24/21 08:00 64
[2021-08-25 05:44] LABS: Alanine Aminotransferase 34 (12-78); Albumin Level 3.7 gm/dl (3.4-5.0); Aspartate Aminotransferase 10 U/L (15-37); BUN Creatinine Ratio 23.6 (10-20); Blood Urea Nitrogen 18 mg/dl (7-18); Calcium 9.5 mg/dl (8.5-10.1); Carbon Dioxide 29 mmol/L (21-32); Chloride 106 mmol/L (98-107); Creatinine Clr Calc Pharmacy 143.4 ml/min; Est GFR (African American) > 150.0 ml/min; Est GFR (Non-African American) 131.3 ml/min; Glucose 102 mg/dl (70-99); Potassium 3.9 mmol/L (3.5-5.1); Sodium 139 mmol/L (136-145)
[2021-08-25 05:46] LABS: Albumin Globulin Ratio 1.2 (0.9-2); Alkaline Phosphatase 84 U/L (45-117); Bilirubin,Total 1.2 mg/dl (0.2-1); Globulin 3.1 gm/dl (2.5-4.0); Total Protein 6.8 gm/dl (6.4-8.2)
--- NOTE | 2021-08-25 06:52 | Hospitalist Progress Note ---
Date of Service August 25, 2021 Assessment & Plan (1) Polysubstance overdose: Plan: Jorge is a 21 yo male with a pmh of MDD, DORITA, and suicidal ideation who was admitted after a polysubstance overdose. 1) Polysubstance overdose: - Pt consumed 30 tablets (10mg) of Lexapro, 10 tablets of benadryl, an unknown amount of ibuprofen, and ETOH - UDS: EtOH 146.7; acetaminophen < 2; salicylates < 1.7 - Poison Control Contacted on Arrival: If QRS >125 start bicarbonate gtt and monitor electrolytes. Keep magnesium > 2. - QRS (08/23) 88 ms - Mg (08/21): 2.5 -had concerns for serotonin syndrome on admission given mild tachycardia and QTc prolongation; however, there was hyporeflexia, reduced bowel sounds, and lack of diaphoresis on past exams. - lorazepam 1mg PRN for agitation - condition improving - in ICE but being downgraded to med/surg with tele 2) Suicide Attempt: - inpatient psychiatric consult: will require inpatient psychiatric treatment on 201 or 302 status once medically cleared - one to one observation 3) QTc prolongation, resolved - QTc (08/23): 434 - monitor w/ tele 4) MDD - holding Lexapro until cleared medically from risk of serotonin syndrome. - Psych consult: recommends inpatient psychiatric stallings 5) DORITA: - see MDD above DVT ppx: SCD FEN/GI: Regular Code Status: Full Dispo: med/surg Admission and Anticipated Discharge Date Admission Date: August 21, 2021 Results & Data Results & Data ([facility]) Vital Signs (Past 12 Hours) Vital Signs Temp Pulse Resp BP Pulse Ox 08/25/21 04:05 36.8 C 61 13 108/57 L 95 08/24/21 22:58 36.7 C 63 16 102/53 L 95 08/24/21 19:17 36.8 C 84 19 103/60 96
--- NOTE | 2021-08-25 12:08 | Discharge Summary ---
Date of Service August 25, 2021 Admission HPI Per Admitting Provider Patient is a 21 year old male with PMHx MDD and DORITA that presents after intentional overdose of 30 tablets of lexapro, an unknown amount of Ibuprofen, and an unknown amount of alcohol with concerns for serotonin syndrome. Patient at this time is unable to answer questions secondary to required sedation due to agitation to prevent self harm. History is provided by the ED provider in addition to the patients mother, Jeanie Hernandez ([phone]). Patients mother notes that she had been talking to the patient around 10:30PM on 08/20/21 and at that point he had been upset in regards to a recent breakup. She notes that the conversation continued spinning out of control and the patient mentioned several times that he "don't want to live" in addition to "have nothing to live for." She notes that he stopped speaking with her on the phone shortly after due to being angry and was texting back and forth with her, ultimately leading to him telling her that he loves her and that he was tired and just wanted to sleep. At this point around 12AM, his mother had concerns in regards to his behaviors and asked his roommate to check up on him with the patient found to have taken multiple medications including a new, full bottle of Lexapro 10mg, an unknown quantity of ibuprofen, and alcohol. Patients roommate called 911. Patient in the ED was given 500mL bolus of NSS, 2gm of Magnesium IV, and 1mg of ativan for agitation. Admission Exam Per Admitting Provider Constitutional: well developed, well nourished and + altered mental status Eyes: reactive pupils and + dilated pupils Ocular horizontal clonus ENMT: external ear and nose normal, oropharynx normal Neck: trachea midline, no thyromegaly Respiratory: normal respiratory effort, lungs clear to auscultation Cardiovascular: Rate/Rhythm: regular rhythm and + tachycardic Heart Sounds: no murmur Gastrointestinal (Abdomen): Inspection/Auscultation: abdomen normal to inspection and normal bowel sounds; abdomen not distended Percussion/Palpation: abdomen soft; abdomen nontender Musculoskeletal: Head/Neck/Chest: normocephalic and head atraumatic Skin: no rashes, warm and dry Neurologic: Patellar reflexes 3+ and brisk Ankle clonus noted b/l Psychiatric: Orientation: + not alert and + not oriented x 3 Principal Diagnosis Polysubstance abuse secondary to suicide attempt. Discharge Exam Constitutional WD/WN, vitals as above Respiratory normal respiratory effort, lungs clear to auscultation Cardiovascular RRR, no murmur, no edema Gastrointestinal (Abdomen) normal bowel sounds, soft, nontender, no hepatosplenomegaly Skin Skin appeared clammy in the upper chest and shoulders bilaterally. Psychiatric Affect: + flat affect Discharge Data Allergies Allergy/AdvReac Type Severity Reaction Status Date / Time No Known Allergies Allergy Unverified 08/21/21 00:12 Consultations 08/21/21 02:13 ED Decision to Admit Stat 08/21/21 07:24 Consult Psychiatry Routine 08/21/21 08:02 Consult Behavioral Health Liaison Routine Hospital Course (1) Polysubstance overdose: 21 yo male with a pmh of MDD, DORITA, and suicidal ideation who was admitted after a polysubstance overdose. 1) Polysubstance overdose: - Pt consumed 30 tablets (10mg) of Lexapro, 10 tablets of benadryl, an unknown amount of ibuprofen, and ETOH - UDS: EtOH 146.7; acetaminophen < 2; salicylates < 1.7 - Poison Control Contacted on Arrival: If QRS >125 start bicarbonate gtt and monitor electrolytes. Keep magnesium > 2. - QRS (08/23) 88 ms - Mg (08/21): 2.5 -had concerns for serotonin syndrome on admission given mild tachycardia and QTc prolongation; however, there was hyporeflexia, reduced bowel sounds, and lack of diaphoresis on past exams. - lorazepam 1mg PRN for agitation - condition improving - in ICE but being downgraded to med/surg with tele - Patient cleared for discharge to psychiatry 08/25/2021 2) Suicide Attempt: - inpatient psychiatric consult: Plan for inpatient psychiatric treatment on 201 or 302 status once medically cleared - one to one observation - Patient discharged to inpatient psychiatry (see above #1) 3) QTc prolongation, resolved - QTc (08/23): 434 - monitor w/ tele 4) MDD - holding Lexapro until cleared medically from risk of serotonin syndrome. - Psych consult: recommends inpatient psychiatric stallings 5) DORITA: - see MDD above DVT ppx: SCD FEN/GI: Regular Code Status: Full Dispo: med/surg Total Time Total Time Spent Total Time Spent (In Minutes): <30 Discharge Plan Discharge Items Patient Disposition: Transfer [facility] Reason For Visit: OVERDOSE Discharge Diagnosis: Polysubstance overdose secondary to suicide attempt Activity: Per Instructions section Non-emergency contact: Psychiatrist Call non-emergency contact if: you have any medication questions and your symptoms worsen Follow-up/Referrals: [facility] [Primary Care Provider] - Diet: [employer] Addtl Attending Provider Instructions: You were admitted to the hospital for polysubstance overdose. You were treated with IV fluids and close monitoring. A discharge summary will be sent to your primary care physician to ensure continuity of care. Please bring this discharge summary with you to your next office appointment so that your provider can review it at that time. Follow-up appointments: * Make a follow-up appointment with your PCP within the next week. It is very important that you follow up with them shortly after discharge from the hospital. * Keep all your follow-up appointments as already scheduled. If you cannot make an appointment, notify your provider. Medications: Your medication list has been reviewed and reconciled upon discharge to ensure accuracy and continuity of care. An updated list of all your medications is included with your hospital discharge paperwork. Please review this list closely, and make note of any changes, if any. Take your medications as instructed; do not skip a dose of your medicines. Make sure all of your doctors know every medicine you are taking (including [id number] medicines, vitamins, and supplements). Call your primary care provider before taking any new medicines (including [id number] medicines, vitamins, and supplements), because some of these may interact with your current medications, or may make your symptoms worse. Tell your primary care provider if you cannot afford your medications. CONTACT YOUR PRIMARY CARE PROVIDER if you experience any of the following: * Sudden muscle rigidity * Extremely high fever * Difficulty following your treatment plan, or difficulty taking medications CALL 911 OR GO TO THE EMERGENCY DEPARTMENT if you experience any of the following: * Sudden, severe abdominal pain or nausea/vomiting * Severe chest pain, or chest pain that radiates (moves) to your jaw or arm * Sudden, severe shortness of breath or difficulty breathing Thank you for allowing us to participate in your care. Pending Studies at Discharge: No Stand-Alone Forms: My [facility] Medications and DC Order Prescriptions: Continued escitalopram oxalate 10 mg Tablet 10 mg PO QAM 30 Days Qty: 30 RF: 0 Discharge Orders: Discharge Order (Routine); Ordered 08/25/21 Ordered By: Ericka Arceo/Other Patient Handouts: ED Overdose, Intentional (Adult) Admission Data Admit Date/Time: 08/21/21 04:19 Attending Provider: Fran Finley Admit Provider: Giancarlo Acuna Primary Care Provider: [facility] Other Providers: Oksana Erickson ; Bonnie Peng ; Virginia Rasmussen ; Edel Mcnamara ; Sergei Amor ; Roderick Baker Other Interventions: Discharge Summary Assessment (RN) Last Done: 08/25/21 15:10 Supervising Physician Co-Signing Physician Notes I personally examined the patient and verified all herrmann points of history and exam, discussed case, and agree with decision making with Dr Whitehead. Physically feeling okay. At the time I saw him was awaiting psychiatric placementlater in the day placement was available. Vitals noted, in general he is awake and alert no distress. HEENT normocephalic atraumatic mucous membranes moist. Breathing unlabored no accessory muscle use good effort. Skin shows no rashes no pallor or icterus. Neuro without focal deficits. Suicide attempt by polysubstance overdosefortunately has come through the overdose okay, stable for transfer to inpatient psych which is able to be done today. Resident Activity Tracking Resident Involvement: Resident Care Provided Care Provided: Adult Hospital Medicine
--- NOTE | 2021-08-25 18:56 | Billing Data ---
Date of Service August 25, 2021 Coding Level of Care Code D/C DAY MANAGEMENT <30 MINS
== END 2021-08-25 17:44 | DRG 918 ==
LOC: ED 23:49 → SUATTDRO 08-21 04:19 → 1E 08-21 04:19

== ENCOUNTER 2021-08-25 15:28 | Inpatient (IN) ==
[2021-08-25] MEDS ORDERED: MAGNESIUM HYDROXIDE SUSP 30 ML UDC PO PRN (15:53)
[2021-08-25] MEDS ORDERED: ALUMINUM/MAGNESIUM SUSP 30 ML UDC PO PRN (15:53)
[2021-08-25] MEDS ORDERED: hydrOXYzine HCl 25 MG TAB PO PRN ×2 (15:53)
[2021-08-25] MEDS ORDERED: BISMUTH SUBSALICYLATE LIQD 236 ML PO PRN (15:53)
[2021-08-25] MEDS ORDERED: ACETAMINOPHEN 325 MG TAB PO PRN (15:53)
[2021-08-25] MEDS ORDERED: SODIUM CHLORIDE 0.65% NA SOLN 45 ML (OCEAN) PRN (15:53)
--- NOTE | 2021-08-26 10:06 | History & Physical ---
Date of Service August 26, 2021 Impression / Recommendations Impression 21 yo male readmit to [facility] for ongoing depression and anxiety s/p polysubstance OD. (1) Major depressive disorder, recurrent episode with anxious distress: The patient [facility] ([facility]) on q15 min checks (behavioral with suicide precautions) for safety. The patient will participate in group, recreational, and milieu therapies and will be offered additional individual and family sessions as clinically appropriate. Risks/benefits/alternatives reviewed re: antidepressants for the treatment of depression and/or anxiety. Discussion included but was not limited to FDA warnings re: suicidality in adolescents and young adults. The patient agreed to a trial of Effexor XR 37.5 mg po qam and titrate and was specifically counseled re: compliance and not stopping abruptly to minimize discontinuation syndrome. Inventory Assets Strengths: intelligent, active in blue band, family support Needs: ongoing therapy and psychiaty, decision about medical withdrawal. Risk Factors Assessment Male: Yes : Yes Do You Have Access To A Gun?: No Mental Health Diagnoses: Yes Substance Use Disorders: No Previous Attempt: Yes Protective Factors Assessment Stable Relationships: Yes Supportive Family: Yes Psychiatric History Identifying Data Jorge Gallardo is a 21 yo man and [employer] student with a history of MDD, DORITA and SI with recent psychiatric hospitalization ([facility] 07/19/21 - 07/23/21) was admitted medically after a suicide attempt via ingestion of escitalopram (~30 tablets of 10mg strength), alcohol and Benadryl (~10 tablets, unknown strength). Chief Complaint "things were still rough after I left". History of Present Illness Per consultation by Dr. Peng: Willy is a 21 yo man and [employer] student with a history of MDD, DORITA and SI with recent inpatient psychiatric hospitalization at [facility]. He is well known to me as I treated him during his recent inpatient psychiatry admission. Per chart review he presented yesterday night to the ED via EMS after an intentional suicide attempt of lexapro, alcohol and possible ibuprofen (today Willy denies ibuprofen but clarifies he took benadryl of unknown strength about 10 tablets). Per admission H&P his mother provided collateral that he had called her just prior to the attempt expressing depressed mood and SI in the context of a recent breakup and feeling hopeless which lead her to alert his roommates who contacted EMS. Today Willy remains quite tired though can answer some questions briefly with prompts to maintain his attention/alertness. He confirms that the overdose was a suicide attempt and states it was somewhat impulsive in that he did not plan out the day/time but had been having intensifying thoughts of SI over the previous few days with thoughts of overdosing on his medication. He recently refilled his lexapro script a few days ago. He states that after leaving the hospital he was still in somewhat of a relationship with his girlfriend but that they official broke up two weeks ago and since then "things didn't get better". He endorsed drinking more alcohol over the past two weeks. Currently he is regretful about having survived the suicide attempt but is saying he will be agreeable to inpatient psychiatric treatment once he's medically cleared. Confirmed he had been taking the lexapro daily after discharge last month. Per my interaction with him on the medical floor he experienced some mental fog that has now resolved. 08/24/21 he described it as a "light switch" and he was more able to engage in discussions around his care. He benefited from visitation with family and was hoping to be hospitalized closer to home given iday break looming and desire to involve them as much as possible in care but no beds were available in the [facility]. Today he states his relationship issues were on/off again since last hospitalization and he was avoiding classes that they have together which only increased his anxiety. He was busy with [employer] and sleep was OK. By the time he returned from break he realized that "nothing was salvagabe". He doesn't feel the SSRI made any improvement in his mood but denied side effects. He would like to restart medication, is aware the dose was low, denies side effects but would prefer to try something else. Past Psychiatric History Current Psychiatric Diagnosis: MDD Outpatient Services: [facility] PCP: ERIKA Previous Psych Admissions: 07/19/21-07/23/21 [facility]: admitted for SI with thoughts to jump in front of a car after a breakup, started Lexapro. Do You Have Access To A Gun?: No History of Previous Suicide Attempt: Yes (but none prior to this admission) Past Medication Trials: Lexapro Allergies Allergy/AdvReac Type Severity Reaction Status Date / Time No Known Allergies Allergy Unverified 08/21/21 00:12 Home Medications Medication Instructions Recorded Confirmed Type escitalopram oxalate 10 mg tablet 10 mg PO QAM 30 Days #30 tab 07/23/21 08/25/21 Rx Family History Family History of: None (though previous stay identified paternal grandparents as having depression.) Alcohol History Hx of Alcohol Use Over the Past 12 Months: Yes (socially) AUDIT Total Score: 2 Smoking Use Have You Smoked or Used Tobacco Products in the Last 30 Days: No Smoking Status: Never smoker Substance History Hx of Prescription Med Misuse Over the Past 12 Months: Yes (attempted overdose on lexapro) Hx of Over the Counter Med Misuse Over the Past 12 Months: Yes (attempted OD on benadryl) Hx of Inhalent Misuse Over the Past 12 Months: No Hx of Organic Substance Use Over the Past 12 Months: No Hx of Illegal Substances/Street Drug Use Over Past 12 Months: No Problems as a Result of Past Substance Use: None Identified Personal History Living Arrangements: Apartment Highest Grade Completed: Some College Employment Status: Student Marital Status: Single Number Of Children: 0 Beliefs That Will Affect Care: None Hx Legal Problems: No Hx Traumatic Life Events: No Patient History Medical History Suicidal ideation Suicide attempt by drug overdose Social History Smoking Status: Never smoker Hx Alcohol Use: Yes Hx Substance Use: Yes Last Used Substance: Just Prior to Arrival Substance Use Type Other:: Overdosed on Lexapro Preferred Language: Italian Communication Ability: Effective Crimper Operator Required: No Beliefs That Will Affect Care: None Current Living Situation: Other Current Living Situation Comment: [employer] student- lives with roommates Feels Safe at Home: Hesitant to Answer Assistive Devices: Glasses Review of Systems Review of Systems: All systems reviewed & are unremarkable except as noted in HPI & below Physical Exam Psychiatric: Orientation: alert and oriented x 3 Apperance: appropriately dressed and appropriately groomed Eye Contact: good eye contact Motor Behavior: no abnormal motor movements Speech: normal rate/rhythm/volume of speech Affect: + depressed affect Mood: + depressed mood Thought Process: goal directed thought process Thought Content: reality based without delusions Suicidal Thoughts: denies suicidal thoughts Homicidal Thoughts: denies homicidal thoughts Hallucinations: no auditory hallucinations and no visual hallucinations Cognition: attention grossly intact and language grossly intact Estimated Intelligence: consistent with education level Insight: + limited insight Judgement: + limited judgement Vital Signs (Past 24 Hours): Last Vital Signs Temp 36.5 C 08/26/21 06:30 Pulse 82 08/26/21 06:30 Resp 16 08/26/21 06:30 BP 98/60 L 08/26/21 06:30 Exam Statement: A physical exam was performed on the medical floor by Dr. Acuna and I accept that physical as correct and adequate for the purposes of the inpatient physical exam with updated medical clearance by Dr. Finley. Results & Data ([facility]) Laboratory Results see medical admission: CBC, lytes, bun, cr, lft were unremarkable with ETOH level on initial presentation 146, COVID negative. Current Inpatient Medications Current Inpatient Medications: Current Inpatient Medications Acetaminophen (Acetaminophen 325 Mg Tab) 650 mg PO Q4H PRN PRN Reason: Headache or Minor Fever Stop: 09/24/21 15:52 Al Hydrox/Mg Hydrox/Simethicone (Aluminum/Magnesium Susp 30 Ml Udc) 30 ml PO Q4H PRN PRN Reason: GI Upset Stop: 09/24/21 15:52 Bismuth Subsalicylate (Bismuth Subsalicylate Liqd 236 Ml) 15 ml PO PRN PRN PRN Reason: Loose Stool Stop: 09/24/21 15:52 Hydroxyzine HCl (Hydroxyzine Hcl 25 Mg Tab) 50 mg PO HSZ PRN PRN Reason: Insomnia Stop: 09/24/21 15:52 Hydroxyzine HCl (Hydroxyzine Hcl 25 Mg Tab) 25 mg PO Q4H PRN PRN Reason: Anxiety Stop: 09/24/21 15:52 Magnesium Hydroxide (Magnesium Hydroxide Susp 30 Ml Udc) 30 ml PO DAILY PRN PRN Reason: Constipation Stop: 09/24/21 15:52 Sodium Chloride (Sodium Chloride 0.65% Na Soln 45 Ml ([place])) 1 - 2 sprays NA PRN PRN PRN Reason: Nasal Dryness/Congestion Stop: 09/24/21 15:52
[2021-08-26] MEDS ORDERED: VENLAFAXINE HCL XR 37.5 MG CAPXR PO ONE (11:03)
[2021-08-27] MEDS: VENLAFAXINE HCL XR 75 MG CAPXR PO SCH (09:32)
--- NOTE | 2021-08-27 14:11 | Psychiatric Progress Note ---
Date of Service August 27, 2021 Impression / Recommendations Impression 21 yo male readmit to [facility] for ongoing depression and anxiety s/p polysubstance OD. (1) Major depressive disorder, recurrent episode with anxious distress: 08/27/21: Effexor XR titrated to 75 mg this am, likely target prior to discharge 150 mg. Needs family meeting. 08/26/21: The patient was admitted to the [facility] ([facility]) on q15 min checks (behavioral with suicide precautions) for safety. The patient will participate in group, recreational, and milieu therapies and will be offered additional individual and family sessions as clinically appropriate. Risks/benefits/alternatives reviewed re: antidepressants for the treatment of depression and/or anxiety. Discussion included but was not limited to FDA warnings re: suicidality in adolescents and young adults. The patient agreed to a trial of Effexor XR 37.5 mg po qam and titrate and was specifically counseled re: compliance and not stopping abruptly to minimize discontinuation syndrome. Inventory Assets Strengths: intelligent, active in blue [place], family support Needs: ongoing therapy and psychiaty, decision about medical withdrawal. Risk Factors Assessment Male: Yes : Yes Do You Have Access To A Gun?: No Mental Health Diagnoses: Yes Substance Use Disorders: No Previous Attempt: Yes Protective Factors Assessment Stable Relationships: Yes Supportive Family: Yes Interval History Identifying Information Jorge Gallardo is a 21 yo man and [employer] student with a history of MDD, DORITA and SI with recent psychiatric hospitalization ([facility] 07/19/21 - 07/23/21) was admitted medically after a suicide attempt via ingestion of escitalopram (~30 tablets of 10mg strength), alcohol and Benadryl (~10 tablets, unknown strength). Chief Complaint "I felt calmer being over here and around people". Review of Systems Sleep Information Total Hours of Sleep: 6.5 Meal Information Percent Meal Consumed - Breakfast: 100 Percent Meal Consumed - Lunch: 100 Percent Meal Consumed - Dinner: 100 Subjective Subjective Patient was seen & assessed and interval progress reviewed with treatment team. Tolerated first dose of Effexor XR. No physical complaints. Still undecided re: medical withdrawal. He was future focussed with discussing family holiday plans, seeing high school friends, etc. Physical Exam Psychiatric Orientation: alert and oriented x 3 Apperance: appropriately dressed and appropriately groomed Eye Contact: good eye contact Motor Behavior: no abnormal motor movements Speech: normal rate/rhythm/volume of speech Affect: + depressed affect Mood: + depressed mood Thought Process: goal directed thought process Thought Content: reality based without delusions Suicidal Thoughts: denies suicidal thoughts Homicidal Thoughts: denies homicidal thoughts Hallucinations: no auditory hallucinations and no visual hallucinations Cognition: attention grossly intact and language grossly intact Estimated Intelligence: consistent with education level Insight: + limited insight Judgement: + limited judgement Vital Signs (Past 24 Hours) Last Vital Signs Temp 36.6 C 08/27/21 06:36 Pulse 71 08/27/21 06:36 Resp 16 08/27/21 06:36 BP 93/56 L 08/27/21 06:36 Results & Data (U) Current Inpatient Medications Current Inpatient Medications: Current Inpatient Medications Acetaminophen (Acetaminophen 325 Mg Tab) 650 mg PO Q4H PRN PRN Reason: Headache or Minor Fever Stop: 09/24/21 15:52 Al Hydrox/Mg Hydrox/Simethicone (Aluminum/Magnesium Susp 30 Ml Udc) 30 ml PO Q4H PRN PRN Reason: GI Upset Stop: 09/24/21 15:52 Bismuth Subsalicylate (Bismuth Subsalicylate Liqd 236 Ml) 15 ml PO PRN PRN PRN Reason: Loose Stool Stop: 09/24/21 15:52 Hydroxyzine HCl (Hydroxyzine Hcl 25 Mg Tab) 50 mg PO HSZ PRN PRN Reason: Insomnia Stop: 09/24/21 15:52 Hydroxyzine HCl (Hydroxyzine Hcl 25 Mg Tab) 25 mg PO Q4H PRN PRN Reason: Anxiety Stop: 09/24/21 15:52 Magnesium Hydroxide (Magnesium Hydroxide Susp 30 Ml Udc) 30 ml PO DAILY PRN PRN Reason: Constipation Stop: 09/24/21 15:52 Sodium Chloride (Sodium Chloride 0.65% Na Soln 45 Ml ([place])) 1 - 2 sprays NA PRN PRN PRN Reason: Nasal Dryness/Congestion Stop: 09/24/21 15:52 Venlafaxine HCl (Venlafaxine Hcl Xr 75 Mg Capxr) 75 mg PO QAM SARA Stop: 09/26/21 08:59 Last Admin: 08/27/21 09:32 Dose: 75 mg Documented by: Mental Health & Subst Abuse Tx Therapist Name of Therapist: [facility] Pati Gage Therapist's Therapy Appointment Comment: [address], [address], [place] Post Discharge Appointments Primary Care Physician Name Of Family Doctor: ERIKA Avina Primary Care Provider Appointment Comment: [facility] Contact Information Discharge Discharge Address: [address], [place] [address]
[2021-08-28] MEDS: VENLAFAXINE HCL XR 75 MG CAPXR PO SCH (09:00)
--- NOTE | 2021-08-28 14:22 | Psychiatric Progress Note ---
Date of Service August 28, 2021 Impression / Recommendations Impression 21 yo male readmit to [facility] for ongoing depression and anxiety s/p polysubstance OD. 08/28/21: improving (1) Major depressive disorder, recurrent episode with anxious distress: 08/28/21: titrate Effexor XR 112.5 mg. IOP referral. 08/27/21: Effexor XR titrated to 75 mg this am, likely target prior to discharge 150 mg. Needs family meeting. 08/26/21: The patient was admitted to the [facility] ([facility] mental health unit) on q15 min checks (behavioral with suicide precautions) for safety. The patient will participate in group, recreational, and milieu therapies and will be offered additional individual and family sessions as clinically appropriate. Risks/benefits/alternatives reviewed re: antidepressants for the treatment of depression and/or anxiety. Discussion included but was not limited to FDA warnings re: suicidality in adolescents and young adults. The patient agreed to a trial of Effexor XR 37.5 mg po qam and titrate and was specifically counseled re: compliance and not stopping abruptly to minimize discontinuation syndrome. Inventory Assets Strengths: intelligent, active in [employer] [place], family support Needs: ongoing therapy and psychiaty, decision about medical withdrawal. Risk Factors Assessment Male: Yes : Yes Do You Have Access To A Gun?: No Mental Health Diagnoses: Yes Substance Use Disorders: No Previous Attempt: Yes Protective Factors Assessment Stable Relationships: Yes Supportive Family: Yes Interval History Identifying Information Jorge Gallardo is a 21 yo man and [employer] student with a history of MDD, DORITA and SI with recent psychiatric hospitalization ([facility] 07/19/21 - 07/23/21) was admitted medically after a suicide attempt via ingestion of escitalopram (~30 tablets of 10mg strength), alcohol and Benadryl (~10 tablets, unknown strength). Chief Complaint "I'm improving". Review of Systems Sleep Information Total Hours of Sleep: 6.5 Meal Information Percent Meal Consumed - Breakfast: 100 Percent Meal Consumed - Lunch: 100 Percent Meal Consumed - Dinner: 100 Subjective Subjective Patient was seen & assessed and interval progress reviewed with nursing and social work. States he felt tired yesterday afternoon but doesn't attribute it to the medication. successful family meeting, participated to discuss med rationale and future planning. Patient will take a medical withdrawal for the semester. Physical Exam Psychiatric Orientation: alert and oriented x 3 Apperance: appropriately dressed and appropriately groomed Eye Contact: good eye contact Motor Behavior: no abnormal motor movements Speech: normal rate/rhythm/volume of speech Affect: euthymic affect Mood: + depressed mood Thought Process: goal directed thought process Thought Content: reality based without delusions Suicidal Thoughts: denies suicidal thoughts Homicidal Thoughts: denies homicidal thoughts Hallucinations: no auditory hallucinations and no visual hallucinations Cognition: attention grossly intact and language grossly intact Estimated Intelligence: consistent with education level Vital Signs (Past 24 Hours) Last Vital Signs Temp 36.7 C 08/28/21 06:34 Pulse 71 08/28/21 06:34 Resp 16 08/28/21 06:34 BP 100/63 08/28/21 06:34 Results & Data ([facility]) Current Inpatient Medications Current Inpatient Medications: Current Inpatient Medications Acetaminophen (Acetaminophen 325 Mg Tab) 650 mg PO Q4H PRN PRN Reason: Headache or Minor Fever Stop: 09/24/21 15:52 Al Hydrox/Mg Hydrox/Simethicone (Aluminum/Magnesium Susp 30 Ml Udc) 30 ml PO Q4H PRN PRN Reason: GI Upset Stop: 09/24/21 15:52 Bismuth Subsalicylate (Bismuth Subsalicylate Liqd 236 Ml) 15 ml PO PRN PRN PRN Reason: Loose Stool Stop: 09/24/21 15:52 Hydroxyzine HCl (Hydroxyzine Hcl 25 Mg Tab) 50 mg PO HSZ PRN PRN Reason: Insomnia Stop: 09/24/21 15:52 Hydroxyzine HCl (Hydroxyzine Hcl 25 Mg Tab) 25 mg PO Q4H PRN PRN Reason: Anxiety Stop: 09/24/21 15:52 Magnesium Hydroxide (Magnesium Hydroxide Susp 30 Ml Udc) 30 ml PO DAILY PRN PRN Reason: Constipation Stop: 09/24/21 15:52 Sodium Chloride (Sodium Chloride 0.65% Na Soln 45 Ml ([place])) 1 - 2 sprays NA PRN PRN PRN Reason: Nasal Dryness/Congestion Stop: 09/24/21 15:52 Mental Health & Subst Abuse Tx Therapist Name of Therapist: Bennie Gage Therapist's Therapy Appointment Comment: [address] [place] [address], [address], [place] Post Discharge Appointments Primary Care Physician Name Of Family Doctor: Freda Avina Primary Care Provider Appointment Comment: [facility] Contact Information Discharge Discharge Address: [address], [place] [address]
[2021-08-29] MEDS: VENLAFAXINE HCL XR 37.5 MG CAPXR PO SCH (08:59)
--- NOTE | 2021-08-29 09:46 | Psychiatric Progress Note ---
Date of Service August 29, 2021 Impression / Recommendations Impression 21 yo male readmit to [facility] for ongoing depression and anxiety s/p polysubstance OD. 08/29/21: titration of Zoloft being monitored given SI on SSRI. (1) Major depressive disorder, recurrent episode with anxious distress: 08/29/21: titrate Effexor XR 150 mg po qam. 08/28/21: titrate Effexor XR 112.5 mg. IOP referral. 08/27/21: Effexor XR titrated to 75 mg this am, likely target prior to discharge 150 mg. Needs family meeting. 08/26/21: The patient was admitted to the [facility] ([facility]) on q15 min checks (behavioral with suicide precautions) for safety. The patient will participate in group, recreational, and milieu therapies and will be offered additional individual and family sessions as clinically appropriate. Risks/benefits/alternatives reviewed re: antidepressants for the treatment of depression and/or anxiety. Discussion included but was not limited to FDA warnings re: suicidality in adolescents and young adults. The patient agreed to a trial of Effexor XR 37.5 mg po qam and titrate and was specifically counseled re: compliance and not stopping abruptly to minimize discontinuation syndrome. Inventory Assets Strengths: intelligent, active in blue [place], family support Needs: ongoing therapy and psychiaty, decision about medical withdrawal. Risk Factors Assessment Male: Yes : Yes Do You Have Access To A Gun?: No Mental Health Diagnoses: Yes Substance Use Disorders: No Previous Attempt: Yes Protective Factors Assessment Stable Relationships: Yes Supportive Family: Yes Interval History Identifying Information Jorge Gallardo is a 21 yo man and [employer] student with a history of MDD, DORITA and SI with recent psychiatric hospitalization ([facility] 07/19/21 - 07/23/21) was admitted medically after a suicide attempt via ingestion of escitalopram (~30 tablets of 10mg strength), alcohol and Benadryl (~10 tablets, unknown strength). Chief Complaint "how long do you think the medicine may take to work?" Review of Systems Sleep Information Total Hours of Sleep: 6.75 Meal Information Percent Meal Consumed - Breakfast: 100 Percent Meal Consumed - Lunch: 100 Percent Meal Consumed - Dinner: 100 Subjective Subjective Patient was seen & assessed and interval progress reviewed with treatment team. Meeting with parents went well. He is working on safety plan and was able to withdraw from classes. IOP will be available 09/01/21 for intake. Physical Exam Psychiatric Orientation: alert and oriented x 3 Apperance: appropriately dressed and appropriately groomed Eye Contact: good eye contact Motor Behavior: no abnormal motor movements Speech: normal rate/rhythm/volume of speech Affect: euthymic affect Mood: + depressed mood Thought Process: goal directed thought process Thought Content: reality based without delusions Suicidal Thoughts: denies suicidal thoughts Homicidal Thoughts: denies homicidal thoughts Hallucinations: no auditory hallucinations and no visual hallucinations Cognition: attention grossly intact and language grossly intact Estimated Intelligence: consistent with education level Vital Signs (Past 24 Hours) Last Vital Signs Temp 36.6 C 08/29/21 06:00 Pulse 65 08/29/21 06:27 Resp 16 08/29/21 06:00 BP 97/59 L 08/29/21 06:27 Results & Data ([facility]) Current Inpatient Medications Current Inpatient Medications: Current Inpatient Medications Acetaminophen (Acetaminophen 325 Mg Tab) 650 mg PO Q4H PRN PRN Reason: Headache or Minor Fever Stop: 09/24/21 15:52 Al Hydrox/Mg Hydrox/Simethicone (Aluminum/Magnesium Susp 30 Ml Udc) 30 ml PO Q4H PRN PRN Reason: GI Upset Stop: 09/24/21 15:52 Bismuth Subsalicylate (Bismuth Subsalicylate Liqd 236 Ml) 15 ml PO PRN PRN PRN Reason: Loose Stool Stop: 09/24/21 15:52 Hydroxyzine HCl (Hydroxyzine Hcl 25 Mg Tab) 50 mg PO HSZ PRN PRN Reason: Insomnia Stop: 09/24/21 15:52 Hydroxyzine HCl (Hydroxyzine Hcl 25 Mg Tab) 25 mg PO Q4H PRN PRN Reason: Anxiety Stop: 09/24/21 15:52 Magnesium Hydroxide (Magnesium Hydroxide Susp 30 Ml Udc) 30 ml PO DAILY PRN PRN Reason: Constipation Stop: 09/24/21 15:52 Sodium Chloride (Sodium Chloride 0.65% Na Soln 45 Ml ([place])) 1 - 2 sprays NA PRN PRN PRN Reason: Nasal Dryness/Congestion Stop: 09/24/21 15:52 Venlafaxine HCl (Venlafaxine Hcl Xr 37.5 Mg Capxr) 112.5 mg PO QAM SARA Stop: 09/28/21 08:59 Last Admin: 08/29/21 08:59 Dose: 112.5 mg Documented by: Mental Health & Subst Abuse Tx Therapist Name of Therapist: [facility]ie Zamorano - Pati Gage Therapist's Therapy Appointment Comment: [address], [address], [place] Post Discharge Appointments Primary Care Physician Name Of Family Doctor: Freda Avina Primary Care Provider Appointment Comment: [facility] Contact Information Discharge Discharge Address: [address], [place] [address]
[2021-08-30] MEDS: VENLAFAXINE HCL XR 37.5 MG CAPXR PO SCH (08:51)
[2021-08-30] MEDS ORDERED: VENLAFAXINE HCL XR 37.5 MG CAPXR PO SCH (09:45)
[2021-08-30] MEDS ORDERED: VENLAFAXINE HCL XR 150 MG CAPXR PO SCH (09:45)
--- NOTE | 2021-08-30 09:47 | Discharge Summary ---
Date of Service August 30, 2021 History of Present Illness Per consultation by Dr. Peng: iWlly is a 21 yo man and [employer] student with a history of MDD, DORITA and SI with recent inpatient psychiatric hospitalization at [facility]. He is well known to me as I treated him during his recent inpatient psychiatry admission. Per chart review he presented yesterday night to the ED via EMS after an intentional suicide attempt of lexapro, alcohol and possible ibuprofen (today Willy denies ibuprofen but clarifies he took benadryl of unknown strength about 10 tablets). Per admission H&P his mother provided collateral that he had called her just prior to the attempt expressing depressed mood and SI in the context of a recent breakup and feeling hopeless which lead her to alert his roommates who contacted EMS. Today Willy remains quite tired though can answer some questions briefly with prompts to maintain his attention/alertness. He confirms that the overdose was a suicide attempt and states it was somewhat impulsive in that he did not plan out the day/time but had been having intensifying thoughts of SI over the previous few days with thoughts of overdosing on his medication. He recently refilled his lexapro script a few days ago. He states that after leaving the hospital he was still in somewhat of a relationship with his girlfriend but that they official broke up two weeks ago and since then "things didn't get better". He endorsed drinking more alcohol over the past two weeks. Currently he is regretful about having survived the suicide attempt but is saying he will be agreeable to inpatient psychiatric treatment once he's medically cleared. Confirmed he had been taking the lexapro daily after discharge last month. Per my interaction with him on the medical floor he experienced some mental fog that has now resolved. 08/24/21 he described it as a "light switch" and he was more able to engage in discussions around his care. He benefited from visitation with family and was hoping to be hospitalized closer to home given holiday break looming and desire to involve them as much as possible in care but no beds were available in the [facility]. Today he states his relationship issues were on/off again since last hospitalization and he was avoiding classes that they have together which only increased his anxiety. He was busy with [employer] [place] and sleep was OK. By the time he returned from [facility] he realized that "nothing was salvagabe". He doesn't feel the SSRI made any improvement in his mood but denied side effects. He would like to restart medication, is aware the dose was low, denies side effects but would prefer to try something else. Physical Exam Vital Signs (Past 24 Hours) Last Vital Signs Temp 36.3 C L 08/30/21 06:00 Pulse 63 08/30/21 06:39 Resp 14 08/30/21 06:00 BP 107/66 08/30/21 06:39 See admission H&P and DOD summary. Principal Diagnosis Major Depressive Disorder Psychiatric Data See daily stay summary. In short, patient was engaged with the social/therapeutic milieu of the unit, safety was maintained and the patient was cooperative with care. Medication changes included discontinuation of escitalopram and initiation of venlafaxine ER which was titrated to 150mg daily and they tolerated this well. Venlafaxine ER could be further titrated to 225 mg daily in the future should depressive symptoms worsen. A family session was held and safety plan was completed prior to discharge. Also reviewed ways to utilize the safety plan during periods of crisis including reviewing options for a suicide safety plan mobile nargis to have available on his phone. Initially following the suicide attempt Willy was regretful about having survived but during the course of his psychiatric admission his depression improved and he is now "looking ahead" and "hopeful" including eagerness to begin his IOP on Wednesday to learn more coping skills. He is also glad he is taking some time away from school and feels that being around his family is a very supportive environment. Discussed ways to utilize his supports should his ex-girlfriend begin texting or calling him and ways to cope with these potential triggers for changes in mood. His acute risk of self-harm is now deemed to be low given improvement in mood and multiple days without any SI. Chronic risk is moderate given potential for depressed mood in context of relationship triggers. Also discussed his increase in alcohol use prior to admission and he plans to avoid drinking after discharge and is not having any cravings for alcohol. Day of Discharge Assessment Today the patient voices readiness for discharge. They note improvement in mood and anxiety. They deny thoughts of harm to self or others. Thoughts remain organized and they are clinically improved from admission. There is no evidence of psychosis. They improved in the hospital with support and medication adjustments. They agree to take medications as prescribed and keep follow-up appointments. At the time of the discharge they are deemed to be stable and appropriate for outpatient level of care. They are not deemed to be at imminent risk of harm to self or others. They are aware of emergency and crisis services. Knows to call 911 or go to nearest emergency care center if in a crisis which cannot be handled as an outpatient. Future-oriented and hopeful about starting IOP on 09/01/21 and being around family. Transition of Care Transition Of Care Record: was reviewed with the patient Advance Directives Advance Directives Information Provided: Yes Advance Directives: No Mental Health Advance Directive: No Advance Directives on File: No Living Will: No Power of Energy Project Manager: No Advance Directives Reason:: Declines as Mental Health Visit. Risk Factors Assessment Male: Yes : Yes Do You Have Access To A Gun?: No Mental Health Diagnoses: Yes Substance Use Disorders: No Previous Attempt: Yes Previous Psychiatric Hospitalization: Yes Hopelessness: No Protective Factors Assessment Stable Relationships: Yes Supportive Family: Yes Good Rapport with Provider: Yes Hospital Course (1) Major depressive disorder, recurrent episode with anxious distress: 08/29/21: titrate Effexor XR 150 mg po qam. 08/28/21: titrate Effexor XR 112.5 mg. IOP referral. 08/27/21: Effexor XR titrated to 75 mg this am, likely target prior to discharge 150 mg. Needs family meeting. 08/26/21: The patient was admitted to the [facility]) on q15 min checks (behavioral with suicide precautions) for safety. The patient will participate in group, recreational, and milieu therapies and will be offered additional individual and family sessions as clinically appropriate. Risks/benefits/alternatives reviewed re: antidepressants for the treatment of depression and/or anxiety. Discussion included but was not limited to FDA warnings re: suicidality in adolescents and young adults. The patient agreed to a trial of Effexor XR 37.5 mg po qam and titrate and was specifically counseled re: compliance and not stopping abruptly to minimize discontinuation syndrome. Mental Health & Subst Abuse Tx Psychiatrist Name of Psychiatrist: [facility] Psychiatrist's Psychiatric Appointment Comment: will be referred after IOP intake-all virtual Therapist Name of Therapist: Bennie Zamorano - Pati Gage Therapist's Date of Therapist Appointment: 09/02/21 Time of Therapist Appointment: 12pm Therapy Appointment Comment: via zoom Post Discharge Appointments Primary Care Physician Name Of Family Doctor: ERIKA Avina Primary Care Provider Appointment Comment: Follow up as needed Other #1: Name of Aftercare Appointment: [facility] Phone Number of Aftercare Appointment: [phone] Date of Aftercare Appointment: 09/01/21 Time of Aftercare Appointment: 11:00 a.m. Aftercare Appointment Comment: [email or web address] #[email or web address]: Name of Aftercare Appointment: [facility] Phone Number of Aftercare Appointment: [phone] Date of Aftercare Appointment: 09/04/21 Time of Aftercare Appointment: 2:00 p.m. Aftercare Appointment Comment: all virtual Contact Information Discharge Discharge Address: [address] [place] [address] Discharge Plan Discharge Items Patient Disposition: Home - Self-Care Reason For Visit: MAJOR DEPRESSION Discharge Diagnosis: Major Depressive Disorder Activity: Resume your previous activity Non-emergency contact: Primary Care Provider and Therapist Call non-emergency contact if: you have any medication questions and your symptoms worsen Follow-up/Referrals: [facility] [Primary Care Provider] - Diet: Regular Addtl Attending Provider Instructions: SPECIAL CARE INSTRUCTIONS: 1. Follow through with your scheduled aftercare appointments. If unable to keep an appointment, please call to reschedule. 2. Take your medication only as prescribed. Medication should not be changed or stopped without the approval of your doctor. In the event of worsening symptoms or concerns about side effects, contact your doctor immediately. 3. Utilize new healthy coping skills, anger management skills, and stress management skills learned during your hospitalization. Journal feelings and process them with a support person. Identify stressors or situations that may result in relapse, deterioration or inappropriate behaviors and develop a plan to deal with those issues. 4. If your coping skills are ineffective and you are in crisis, contact your outpatient providers for direction. If unable to reach your providers, please call the [facility] CRISIS LINE AT , go to the [facility] walk-in center at [address] [place] [address], [address], [place], or go to the closest Emergency Room. 5. Avoid alcohol and un-prescribed drugs. 6. You have been provided with the Mental Health Advance Directives Pamphlet for your review. 7. Your condition is stable for discharge to outpatient level of care, but recovery is an ongoing process. Ifthoughts to harm yourself or others return, follow the safety plan developed during your stay. Planning for a safe return home includes securing weapons. Our treatment team recommends weaponsbe removed from the home until your outpatient provider reassesses your progress. In rare cases where the items themselvescannot be removed, guns and ammunitionshould be secured separatelyand keys stored by a reliable personoutside of the home. If you were admitted on an involuntary commitment, the police or other legal authorities may be involved in this process. AFTERCARE APPOINTMENTS: * Please call your insurance company prior to your scheduled appointment to confirm your aftercare providers are covered. Take your insurance information to your appointments. WHO TO CALL AND WHEN: Medical Emergencies: For questions or emergencies related to your hospital stay, please contact the Inpatient Behavioral Health Unit at [phone]. A access clinician is on-call 12/04 for the Behavioral Health Unit for emergencies At any time you feel your situation is an emergency, you may also call 911 immediately. Pending Studies at Discharge: No Stand-Alone Forms: My [facility] Medications and DC Order Prescriptions: New venlafaxine 150 mg capsule,extended release 24hr 150 mg PO QAM 30 Days Qty: 30 RF: 0 hydroxyzine HCl 50 mg tablet 50 mg PO HS PRN (Reason: anxiety) 30 Days Qty: 7 RF: 0 Discontinued escitalopram oxalate 10 mg Tablet 10 mg PO QAM 30 Days Qty: 30 RF: 0 Discharge Orders: Discharge Order (Routine); Ordered 08/30/21 Ordered By: Bonnie Arceo/Other Patient Handouts: Depression: Tips to Help Yourself Admission Data Admit Date/Time: 08/25/21 18:06 Attending Provider: Bonnie Peng Admit Provider: Virginia Rasmussen Primary Care Provider: [facility] Other Interventions: PSY Interdisciplinary Discharge Planning Last Done: 08/30/21 07:53 Coding Level of Care Code 89313 D/C day mgmt > 30 min Diagnoses Major depressive disorder, recurrent episode with anxious distress F33.9 Time Spent (min) 45
== END 2021-08-30 12:30 | disposition home or self-care (01) | DRG 885 ==
LOC: 3S 18:06 → SUATTDRO 18:06
DX: Z79.899 Other long term (current) drug therapy; R45.851 Suicidal ideations; F41.1 Generalized anxiety disorder; F33.8 Other recurrent depressive disorders